=== PATIENT | male | born 1945 | race Two or more races ===

== ENCOUNTER 2019-11-30 07:19 | Inpatient (IN) | payer OTHER, MEDICAID ==
[~2019-11-30] VITALS: Ht 170.2 cm; Wt 100.9 kg
[2019-11-30] MEDS ORDERED: KETOROLAC TROMETH 60MG/2ML VIAL IM ONE (07:45)
[2019-11-30 08:57] LABS: Basophils # (auto) 0 10 ^3/uL (0-0.2); Basophils % (auto) 0.1 % (0.0-2.0); Eosinophils # (auto) 0 10 ^3/uL (0-0.8); Hematocrit 45.4 % (41.0-53.0); Hemoglobin 15.5 g/dL (13.5-17.5); Lymphocytes # (auto) 0.7 10 ^3/uL (0.4-5.4); Lymphocytes % (auto) 20.7 % (10.0-50.0); Mean Corpuscular Hemoglobin 32.6 pg (28.0-32.0); Mean Corpuscular Hgb Conc. 34.2 g/dL (32.0-36.0); Mean Corpuscular Volume 95.4 fL (80.0-100.0); Monocytes # (auto) 0.2 10 ^3/uL (0-1.3); Monocytes % (auto) 5.7 % (0.0-12.0); Neutrophils # (auto) 2.6 10 ^3/uL (1.6-8.6); Neutrophils % (auto) 73.5 % (37.0-80.0); Nucleated Red Blood Cells % 0.2 %; Platelet Count (auto) 110 10^3/uL (140-450); Red Blood Cells 4.75 10^6/uL (4.5-5.90); Red Cell Distribution Width 13.3 % (11.8-14.3); White Blood Cell 3.5 10^3/uL (4.4-10.8)
[2019-11-30 09:12] LABS: Alanine Aminotransferase 65 U/L (16-61); Albumin 3.4 g/dL (3.4-5.0); Anion Gap 9 (5-15); Aspartate Aminotransferase 78 U/L (15-37); BUN/Creatinine Ratio 9.8; Blood Urea Nitrogen 13 mg/dL (7-18); Calcium 8.1 mg/dL (8.5-10.1); Carbon Dioxide 23 mmol/L (21-32); Chloride 99 mmol/L (98-107); GFR African American 69 mL/min; GFR Non-African American 57 mL/min; Glucose 98 mg/dL (74-106); Potassium 3.5 mmol/L (3.5-5.1); Sodium 131 mmol/L (136-145)
[2019-11-30 09:17] LABS: Alkaline Phosphatase 53 U/L (45-117); Bilirubin, Total 0.8 mg/dL (0.2-1.0); Total Protein 7.8 g/dL (6.4-8.2)
[2019-11-30 10:05] LABS: Urine Bacteria NONE SEEN /hpf (None Seen); Urine Blood Negative /uL (Negative); Urine Hyaline Cast MANY /lpf (0 - 2); Urine Mucus FEW (None Seen); Urine Specific Gravity 1.043 (1.001-1.035); Urine WBC 7 /hpf (0 - 3)
[2019-11-30] MEDS ORDERED: DexAMETHasone SOD PHOS 10MG/1ML VIAL INJ IV ONE (10:15)
[2019-11-30] MEDS ORDERED: DOXYCYCLINE 100 MG TAB/CAP PO ONE (10:15)
[2019-11-30] MEDS ORDERED: ZINC SULFATE 220mg CAP or TAB PO ONE (10:15)
[2019-11-30 11:22] LABS: CRP High Sensitivity 10.9 mg/dL (< 0.3)
[2019-11-30] MEDS ORDERED: IOHEXOL 350 MG/ML 100ML IJ ONE (11:39)
[2019-11-30] MEDS ORDERED: SODIUM CHLORIDE 0.9% 1,000 ML IV SCH (16:07)
[2019-11-30] MEDS ORDERED: MORPHINE SULF INJ 2 MG/ML SYRINGE 1ML IV PRN (16:30)
[2019-11-30] MEDS ORDERED: DEXTROSE (50%) 50ML SYRG IV PRN (16:30)
[2019-11-30] MEDS ORDERED: NITROGLYCERIN 0.4 MG SL TAB SL PRN (16:30)
[2019-11-30] MEDS: ACCU-CHEK COMFORT CURVE STRIP VI SCH ×2 (18:22→23:45)
[2019-11-30] MEDS: InsuLIN REG 1unit/0.01ml Soln (100units/ml) SC SCH ×2 (18:30→23:50)
[2019-11-30] MEDS: ACETAMINOPHEN 500 MG TAB PO PRN (18:50)
[2019-11-30] MEDS: BUDESONIDE (INHALATION) 180 MCG IH IN SCH (19:58)
[2019-11-30] MEDS: ALBUTEROL SULF HFA 90MCG INH 200DOSE IN SCH (19:59)
[2019-11-30 20:42] VITALS: BP 130/68
[2019-11-30] MEDS ORDERED: TEMAZEPAM 15 MG CAP PO ONE (21:30)
[2019-11-30] MEDS: DOXYCYCLINE 100MG/250ML 250 ML IV SCH (22:07)
[2019-11-30] MEDS: ATORVASTATIN 20 MG TAB PO SCH (22:07)
[2019-12-01] MEDS: ACCU-CHEK COMFORT CURVE STRIP VI SCH ×3 (05:50→17:53)
[2019-12-01] MEDS: InsuLIN REG 1unit/0.01ml Soln (100units/ml) SC SCH ×3 (05:51→17:48)
[2019-12-01] MEDS: ALBUTEROL SULF HFA 90MCG INH 200DOSE IN SCH ×2 (06:00→23:40)
[2019-12-01 08:14] LABS: Basophils # (auto) 0 10 ^3/uL (0-0.2); Basophils % (auto) 0.1 % (0.0-2.0); Eosinophils # (auto) 0 10 ^3/uL (0-0.8); Hematocrit 41.1 % (41.0-53.0); Hemoglobin 14.1 g/dL (13.5-17.5); Lymphocytes # (auto) 0.6 10 ^3/uL (0.4-5.4); Lymphocytes % (auto) 14.6 % (10.0-50.0); Mean Corpuscular Hemoglobin 32.8 pg (28.0-32.0); Mean Corpuscular Hgb Conc. 34.4 g/dL (32.0-36.0); Mean Corpuscular Volume 95.3 fL (80.0-100.0); Monocytes # (auto) 0.2 10 ^3/uL (0-1.3); Monocytes % (auto) 4.4 % (0.0-12.0); Neutrophils # (auto) 3.5 10 ^3/uL (1.6-8.6); Neutrophils % (auto) 80.9 % (37.0-80.0); Nucleated Red Blood Cells % 0.1 %; Platelet Count (auto) 108 10^3/uL (140-450); Red Blood Cells 4.31 10^6/uL (4.5-5.90); White Blood Cell 4.3 10^3/uL (4.4-10.8)
[2019-12-01 08:28] LABS: Albumin 2.6 g/dL (3.4-5.0); Calcium 7.7 mg/dL (8.5-10.1)
[2019-12-01 08:30] LABS: Bilirubin, Total 0.6 mg/dL (0.2-1.0); Total Protein 6.7 g/dL (6.4-8.2)
[2019-12-01] MEDS: CHOLECALCIFEROL (VITD3) 2,000 UNIT CAP PO SCH (09:39)
[2019-12-01] MEDS: ASCORBIC ACID 1,000 MG TAB PO SCH (09:40)
[2019-12-01] MEDS: ZINC SULFATE 220mg CAP or TAB PO SCH (09:40)
[2019-12-01] MEDS: LISINOPRIL 5 MG TAB PO SCH (09:40)
[2019-12-01] MEDS: ENOXAPARIN SOD 40 MG/0.4 ML SYRINGE SC SCH (09:41)
[2019-12-01] MEDS: DexAMETHasone SOD PHOS 10MG/1ML VIAL INJ IV SCH (09:43)
[2019-12-01] MEDS: THIAMINE 100mg/ml INJ (200mg/2ml VIAL) IV SCH (09:43)
[2019-12-01] MEDS: DOXYCYCLINE 100MG/250ML 250 ML IV SCH ×2 (09:50→21:45)
[2019-12-01] MEDS: BUDESONIDE (INHALATION) 180 MCG IH IN SCH ×2 (10:00→23:40)
[2019-12-01] MEDS: ACETAMINOPHEN 500 MG TAB PO PRN ×2 (11:51→17:37)
[2019-12-01 21:28] VITALS: BP 128/78
--- NOTE | 2019-12-01 21:38 | NUR ---
Telemetry admit from ER Patient admitted to Telemetry unit. Patient oriented to primary RN, unit, room, bed, and unit policies regarding patient care and visiting hours. Patient now on continuous telemetry monitoring, tele box # 2 and telemetry reading on arrival to unit is sinus rhythm. Patient placed on bedside oxygen 4L NC, weighed by bedscale and encouraged to call if they need something. All questions and concerns addressed, patient verbalized understanding. Safety precautions in place bed is in lowest position and locked, bed rails 2x. Call light and bedside table are within reach.
[2019-12-01] MEDS: FAMOTIDINE 20 MG TAB PO SCH (21:45)
[2019-12-01] MEDS: ATORVASTATIN 20 MG TAB PO SCH (21:45)
[2019-12-02] MEDS: ACCU-CHEK COMFORT CURVE STRIP VI SCH ×4 (00:25→18:21)
[2019-12-02] MEDS: InsuLIN REG 1unit/0.01ml Soln (100units/ml) SC SCH ×4 (00:33→18:21)
[2019-12-02] MEDS: ACETAMINOPHEN 500 MG TAB PO PRN ×2 (01:48→23:52)
[2019-12-02 05:06] VITALS: BP 114/61
[2019-12-02] MEDS ORDERED: CHOL20007 OR (05:12)
[2019-12-02] MEDS ORDERED: HYDR25TA4 PO (05:12)
[2019-12-02] MEDS ORDERED: FLUT50SP (05:12)
[2019-12-02] MEDS ORDERED: LOSA-69 PO (05:12)
[2019-12-02] MEDS ORDERED: OMEP20TA PO (05:12)
[2019-12-02] MEDS ORDERED: FENO145T27 OR (05:12)
[2019-12-02] MEDS ORDERED: TRAZ100T3 PO (05:12)
[2019-12-02] MEDS ORDERED: GLIP5TAB12 PO (05:12)
[2019-12-02] MEDS ORDERED: SIMV10TA84 PO (05:12)
[2019-12-02] MEDS ORDERED: TRAM50TA2 PO (05:12)
[2019-12-02] MEDS ORDERED: GABA100C9 PO (05:12)
[2019-12-02] MEDS ORDERED: DOXA4TAB5 PO (05:12)
[2019-12-02] MEDS ORDERED: METO25TA93 PO (05:12)
[2019-12-02] MEDS ORDERED: METF-370 PO (05:12)
[2019-12-02] MEDS: ALBUTEROL SULF HFA 90MCG INH 200DOSE IN SCH ×3 (06:32→18:40)
[2019-12-02] MEDS: BUDESONIDE (INHALATION) 180 MCG IH IN SCH ×2 (06:39→18:40)
[2019-12-02 06:51] LABS: Basophils # (auto) 0 10 ^3/uL (0-0.2); Eosinophils # (auto) 0 10 ^3/uL (0-0.8); Hemoglobin 14.9 g/dL (13.5-17.5); Lymphocytes # (auto) 0.9 10 ^3/uL (0.4-5.4); Lymphocytes % (auto) 14.7 % (10.0-50.0); Mean Corpuscular Hemoglobin 32.9 pg (28.0-32.0); Mean Corpuscular Hgb Conc. 34.6 g/dL (32.0-36.0); Mean Corpuscular Volume 95.1 fL (80.0-100.0); Monocytes # (auto) 0.2 10 ^3/uL (0-1.3); Monocytes % (auto) 3.3 % (0.0-12.0); Neutrophils # (auto) 4.9 10 ^3/uL (1.6-8.6); Nucleated Red Blood Cells % 0.1 %; Platelet Count (auto) 119 10^3/uL (140-450); Red Blood Cells 4.52 10^6/uL (4.5-5.90)
[2019-12-02 07:05] LABS: Potassium 3.7 mmol/L (3.5-5.1)
[2019-12-02 07:17] LABS: Albumin 2.6 g/dL (3.4-5.0); BUN/Creatinine Ratio 19.4; Bilirubin, Total 0.5 mg/dL (0.2-1.0); CRP High Sensitivity 6.99 mg/dL (< 0.3); Calcium 8.1 mg/dL (8.5-10.1); Total Protein 6.9 g/dL (6.4-8.2)
--- NOTE | 2019-12-02 07:18 | NUR ---
End of Shift Note Endorsed care to dayshift RN. At this time patient has no s/s of distress or SOB.
--- NOTE | 2019-12-02 07:20 | NUR ---
Opening Shift Note Assumed care of patient, awake and alert x4. Patient is on 5 L via NC, O2 Sat is at 92%. Patient denies pain at this time. Instructed on plan of care and encouraged patient to call for assistance as needed. Bed is locked in lowest position, side rails x 2 are up, and call light is within reach.
[2019-12-02 08:00] VITALS: BP 135/67
[2019-12-02] MEDS: DOXYCYCLINE 100MG/250ML 250 ML IV SCH ×2 (10:14→22:46)
[2019-12-02] MEDS: THIAMINE 100mg/ml INJ (200mg/2ml VIAL) IV SCH (10:15)
[2019-12-02] MEDS: CHOLECALCIFEROL (VITD3) 2,000 UNIT CAP PO SCH (10:16)
[2019-12-02] MEDS: ASCORBIC ACID 1,000 MG TAB PO SCH ×2 (10:16→22:46)
[2019-12-02] MEDS: ZINC SULFATE 220mg CAP or TAB PO SCH (10:16)
[2019-12-02] MEDS: DexAMETHasone SOD PHOS 10MG/1ML VIAL INJ IV SCH (10:16)
[2019-12-02] MEDS: ENOXAPARIN SOD 40 MG/0.4 ML SYRINGE SC SCH (10:16)
[2019-12-02] MEDS: FAMOTIDINE 20 MG TAB PO SCH ×2 (10:17→22:45)
[2019-12-02] MEDS: LISINOPRIL 5 MG TAB PO SCH (10:17)
[2019-12-02 12:00] VITALS: BP 150/66
[2019-12-02 17:00] VITALS: BP 136/77
[2019-12-02] MEDS ORDERED: TEMAZEPAM 15 MG CAP PO PRN (18:15)
--- NOTE | 2019-12-02 18:30 | NUR ---
IV DISLODGED IV dislodged acidentally by patient. Catheter fully intact. Pressure dressing applied to site. Patient tolerated well.
[2019-12-02] MEDS ORDERED: REMDESIVIR 200 MG IV ONE (19:15)
--- NOTE | 2019-12-02 19:25 | NUR ---
Discharge instructions given as ordered. Encourage to follow up with PMD as instructed. All questions and concerns addressed. Patient verbalized understanding. IV removed with catheter intact, pressure dressing applied. Telemetry unit returned to ICU. Patient taken to vehicle via wheelchair with all personal belongings, accompanied by staff. Prescriptions electronically sent to pharmacy, pending pickup by patient. No distress noted at time of departure. Addendum: 12/02/19 at 1931 by CLINTON CUELLAR RN RN wrong patient please disregard.
--- NOTE | 2019-12-02 20:00 | NUR ---
IV insertion First IV access obtained, via clean sterile technique by inserting 20 gauge catheter at left antecubital after 1 attempt. IV secured properly. No trauma to site. Patient tolerated well. Second, IV access obtained, via clean sterile technique by inserting 20 gauge catheter at right forearm after 1 attempt. IV secured properly. No trauma to site. Patient tolerated well. Will continue to monitor patient Q1 and PRN.
[2019-12-02 22:03] VITALS: BP 130/78
[2019-12-02] MEDS: traZODone HCL 50 MG TAB PO SCH (22:45)
[2019-12-02] MEDS: ATORVASTATIN 20 MG TAB PO SCH (22:46)
[2019-12-02] MEDS: ARTIFICIAL TEARS 15ml EACHEYE PRN (22:47)
[2019-12-02] MEDS ORDERED: REMDESIVIR 200 MG in NS 210ml LOADING DOSE ADULT IV ONE (23:00)
[2019-12-02 23:50] VITALS: BP 127/55
--- NOTE | 2019-12-02 23:50 | NUR ---
Remdesivir Administration Premedicated VS: BP 127/55 NM 81 RR 20 SPO2 92% TEMP 98.1F. At this time patient has no s/s of distress or SOB.
[2019-12-03] VITALS (8 sets, daily range): BP systolic 114–138; BP diastolic 47–82
--- NOTE | 2019-12-03 00:08 | NUR ---
Remdesivir 15 minute Recheck Current VS: BP 114/47 CT 69 RR 20 TEMP 98F. Patient is asymptomatic, no s/s of distress or SOB. Will continue to monitor patient Q1 and PRN.
[2019-12-03] MEDS: InsuLIN REG 1unit/0.01ml Soln (100units/ml) SC SCH ×5 (00:48→23:42)
[2019-12-03] MEDS: ACCU-CHEK COMFORT CURVE STRIP VI SCH ×5 (05:25→23:40)
[2019-12-03] MEDS: ALBUTEROL SULF HFA 90MCG INH 200DOSE IN SCH ×3 (06:16→21:46)
[2019-12-03] MEDS: BUDESONIDE (INHALATION) 180 MCG IH IN SCH ×2 (06:16→21:46)
--- NOTE | 2019-12-03 06:16 | NUR ---
PT INFORMED TO RINSE MOUTH AFTER PULMICORT DPI. PT IS [place] SPEAKING. UNCERTAIN IF INSTRUCTIONS WERE UNDERSTOOD.
--- NOTE | 2019-12-03 06:16 | NUR ---
Respiratory note: MDI GIVEN BY RT, TOLERATED WELL. HR 84, RR 16, SPO2 88% ON 15L NRB, BS CLEAR AND DIMINISHED. NO SIGNS OR SYMPTOMS OF RESPIRATORY DISTRESS NOTED. WILL CONTINUE TO MONITOR ORDERED.
[2019-12-03 06:32] LABS: Basophils # (auto) 0 10 ^3/uL (0-0.2); Basophils % (auto) 0.1 % (0.0-2.0); Eosinophils # (auto) 0 10 ^3/uL (0-0.8); Hematocrit 42.2 % (41.0-53.0); Hemoglobin 14.7 g/dL (13.5-17.5); Lymphocytes # (auto) 0.7 10 ^3/uL (0.4-5.4); Lymphocytes % (auto) 11.9 % (10.0-50.0); Mean Corpuscular Hemoglobin 32.9 pg (28.0-32.0); Mean Corpuscular Hgb Conc. 34.8 g/dL (32.0-36.0); Mean Corpuscular Volume 94.5 fL (80.0-100.0); Monocytes # (auto) 0.3 10 ^3/uL (0-1.3); Monocytes % (auto) 4.8 % (0.0-12.0); Neutrophils # (auto) 4.8 10 ^3/uL (1.6-8.6); Neutrophils % (auto) 83.2 % (37.0-80.0); Platelet Count (auto) 148 10^3/uL (140-450); Red Blood Cells 4.46 10^6/uL (4.5-5.90); Red Cell Distribution Width 13.4 % (11.8-14.3); White Blood Cell 5.8 10^3/uL (4.4-10.8)
[2019-12-03 06:46] LABS: INR 1.04 (0.9-1.15); Partial Thromboplastin Time 31.4 sec (23.0-31.2)
[2019-12-03 06:53] LABS: Potassium 4.2 mmol/L (3.5-5.1)
[2019-12-03 07:10] LABS: Albumin 2.3 g/dL (3.4-5.0); Bilirubin, Total 0.5 mg/dL (0.2-1.0); CRP High Sensitivity 12.8 mg/dL (< 0.3); Calcium 8.1 mg/dL (8.5-10.1); Total Protein 6.9 g/dL (6.4-8.2)
--- NOTE | 2019-12-03 07:28 | NUR ---
End of Shift Note Endorsed care to dayshift RN. At this time patient has no s/s of distress or SOB.
--- NOTE | 2019-12-03 07:30 | NUR ---
Opening Shift Note Assumed care of patient, awake and alert x4. Patient is on 15 L via non rebreather, O2 Sat is at 92%. Patient denies pain at this time. Instructed on plan of care and encouraged patient to call for assistance as needed. Bed is locked in lowest position, side rails x 2 are up, and call light is within reach.
--- NOTE | 2019-12-03 09:00 | NUR ---
Respiratory note: SPOKE TO [employer] DEAN ABOUT PLACING PT ON MONITOR WITH CONTINUOUS POX.
[2019-12-03] MEDS: DOXYCYCLINE 100MG/250ML 250 ML IV SCH ×2 (09:16→21:30)
[2019-12-03] MEDS: FAMOTIDINE 20 MG TAB PO SCH ×2 (09:17→21:32)
[2019-12-03] MEDS: CHOLECALCIFEROL (VITD3) 2,000 UNIT CAP PO SCH (09:17)
[2019-12-03] MEDS: ENOXAPARIN SOD 40 MG/0.4 ML SYRINGE SC SCH (09:17)
[2019-12-03] MEDS: ASCORBIC ACID 1,000 MG TAB PO SCH ×2 (09:17→21:31)
[2019-12-03] MEDS: DexAMETHasone SOD PHOS 10MG/1ML VIAL INJ IV SCH (09:17)
[2019-12-03] MEDS: THIAMINE 100mg/ml INJ (200mg/2ml VIAL) IV SCH (09:18)
[2019-12-03] MEDS: LISINOPRIL 5 MG TAB PO SCH (09:18)
[2019-12-03] MEDS: ZINC SULFATE 220mg CAP or TAB PO SCH (09:18)
[2019-12-03] MEDS ORDERED: methylPREDNISolone SOD SUCC 40 MG/ML VL IV ONE (17:00)
[2019-12-03] MEDS ORDERED: ACETAMINOPHEN 650 mg PER 20 mL UD PO ONE (17:00)
[2019-12-03] MEDS ORDERED: diphenhdrAMINE HCL 50 MG/1 ML VL IV ONE (17:00)
[2019-12-03] MEDS ORDERED: TOCILIZUMAB 400 MG in SODIUM CHL 0.9% 80 ML IV ONE (17:30)
--- NOTE | 2019-12-03 17:50 | NUR ---
Spoke with patient daughter Password verified. Spoke with Starr patient's daughter. Starr updated on patient's condition. All questions and concerns addressed.
--- NOTE | 2019-12-03 19:10 | NUR ---
Opening Shift Note Assumed care of patient, awake, alert and orietnted x4, on 15L nonrebreather with even and unlabored respirations, no S/S of distress/SOB or pain. Patient able to turn in bed independently, bed in lowest locked position, side rails up x2, and call light within reach. Instructed on POC and to call for assist PRN, will continue to monitor for changes Q1hr and PRN.
[2019-12-03] MEDS: REMDESIVIR 100mg in NS 230ml DAILYx4DAYS (NO VENT) IV SCH (20:04)
--- NOTE | 2019-12-03 20:05 | NUR ---
REMDESIVIR ADMNISTRATION 1/ PRE ADMINISTRATION VITALS: BP 144/76, HR 82, O2 91%, RR 18
[2019-12-03] MEDS: ATORVASTATIN 20 MG TAB PO SCH (21:31)
[2019-12-03] MEDS: traZODone HCL 50 MG TAB PO SCH (21:31)
[2019-12-04 00:33] VITALS: BP 140/73
[2019-12-04] MEDS: ACETAMINOPHEN 500 MG TAB PO PRN (01:49)
[2019-12-04 05:16] VITALS: BP 128/70
[2019-12-04 06:28] LABS: Basophils # (auto) 0 10 ^3/uL (0-0.2); Basophils % (auto) 0.2 % (0.0-2.0); Eosinophils # (auto) 0 10 ^3/uL (0-0.8); Hematocrit 43.7 % (41.0-53.0); Hemoglobin 14.7 g/dL (13.5-17.5); Lymphocytes # (auto) 0.7 10 ^3/uL (0.4-5.4); Lymphocytes % (auto) 15.5 % (10.0-50.0); Mean Corpuscular Hemoglobin 32.1 pg (28.0-32.0); Mean Corpuscular Hgb Conc. 33.7 g/dL (32.0-36.0); Mean Corpuscular Volume 95.3 fL (80.0-100.0); Monocytes # (auto) 0.4 10 ^3/uL (0-1.3); Monocytes % (auto) 8.6 % (0.0-12.0); Neutrophils # (auto) 3.4 10 ^3/uL (1.6-8.6); Neutrophils % (auto) 75.7 % (37.0-80.0); Nucleated Red Blood Cells % 0.1 %; Platelet Count (auto) 174 10^3/uL (140-450); Red Blood Cells 4.59 10^6/uL (4.5-5.90); Red Cell Distribution Width 13.1 % (11.8-14.3); White Blood Cell 4.4 10^3/uL (4.4-10.8)
[2019-12-04 06:44] LABS: Potassium 4.6 mmol/L (3.5-5.1)
[2019-12-04] MEDS: InsuLIN REG 1unit/0.01ml Soln (100units/ml) SC SCH ×4 (06:54→23:45)
[2019-12-04] MEDS: ACCU-CHEK COMFORT CURVE STRIP VI SCH ×4 (06:54→23:38)
[2019-12-04 07:05] LABS: Albumin 2.4 g/dL (3.4-5.0); Bilirubin, Total 0.6 mg/dL (0.2-1.0); CRP High Sensitivity 9.71 mg/dL (< 0.3); Calcium 8.7 mg/dL (8.5-10.1); Total Protein 7.2 g/dL (6.4-8.2)
--- NOTE | 2019-12-04 07:35 | NUR ---
opening shift note Assumed care of patient from NOC RN. Patient is AOX4, no SOB or distress noted. Bed is in lowest locked position, call light is with in reach, and side rails are up x2. Updated patient on plan of care and patient verbalized understanding. Will continue to monitor q1hr and PRN.
[2019-12-04] MEDS ORDERED: ACETAMINOPHEN 650 mg PER 20 mL UD PO ONE (08:00)
[2019-12-04] MEDS ORDERED: diphenhdrAMINE HCL 50 MG/1 ML VL IV ONE (08:00)
[2019-12-04] MEDS ORDERED: methylPREDNISolone SOD SUCC 40 MG/ML VL IV ONE (08:00)
[2019-12-04] MEDS ORDERED: TOCILIZUMAB 400 MG in SODIUM CHL 0.9% 80 ML IV ONE (08:30)
[2019-12-04 08:45] VITALS: BP 108/53
[2019-12-04] MEDS: THIAMINE 100mg/ml INJ (200mg/2ml VIAL) IV SCH (09:27)
[2019-12-04] MEDS: DexAMETHasone SOD PHOS 10MG/1ML VIAL INJ IV SCH (09:29)
[2019-12-04] MEDS: FAMOTIDINE 20 MG TAB PO SCH ×2 (09:30→21:51)
[2019-12-04] MEDS: CHOLECALCIFEROL (VITD3) 2,000 UNIT CAP PO SCH (09:30)
[2019-12-04] MEDS: ASCORBIC ACID 1,000 MG TAB PO SCH ×2 (09:30→21:51)
[2019-12-04] MEDS: ZINC SULFATE 220mg CAP or TAB PO SCH (09:30)
[2019-12-04] MEDS: ENOXAPARIN SOD 40 MG/0.4 ML SYRINGE SC SCH (09:31)
[2019-12-04] MEDS: LISINOPRIL 5 MG TAB PO SCH (09:31)
[2019-12-04] MEDS: BUDESONIDE (INHALATION) 180 MCG IH IN SCH ×2 (10:09→21:58)
[2019-12-04] MEDS: ALBUTEROL SULF HFA 90MCG INH 200DOSE IN SCH ×3 (10:09→21:58)
[2019-12-04] MEDS: DOXYCYCLINE 100MG/250ML 250 ML IV SCH ×2 (11:24→21:50)
--- NOTE | 2019-12-04 11:52 | NUR ---
Est energy needs [phone] kcal (20-23 kcal/kg BW 88.3kg) Est protein needs 67-105g (1-1.5g/kg IBW 67.3kg) Will reassess prn. Addendum: 12/04/[address] Amended: Links added.
--- NOTE | 2019-12-04 12:17 | NUR ---
actemra Actemra was given at 1000, 30 min after pre-medications were given.
[2019-12-04 12:45] VITALS: BP 129/76
[2019-12-04 16:45] VITALS: BP 143/81
--- NOTE | 2019-12-04 19:05 | NUR ---
end of shift note endorsed care to NOC MENDEL Shelley, no s/s of distress noted.
--- NOTE | 2019-12-04 19:14 | NUR ---
Opening Shift Note Assumed care of patient, awake, alert and oriented x4, on 15L of oxygen via nonrebreather with even and unlabored respirations, no S/S of distress/SOB or pain. Patient able to turn in bed independently, bed in lowest locked position, side rails up x2, and call light within reach. Instructed on POC and to call for assist PRN, will continue to monitor for changes Q1hr and PRN.
[2019-12-04] MEDS: REMDESIVIR 100mg in NS 230ml DAILYx4DAYS (NO VENT) IV SCH (20:22)
[2019-12-04] MEDS: traZODone HCL 50 MG TAB PO SCH (21:50)
[2019-12-04] MEDS: ATORVASTATIN 20 MG TAB PO SCH (21:51)
--- NOTE | 2019-12-04 21:59 | NUR ---
RT NOTE PT WAS SEEN BY RT FOR MDI TX. PT TOLERATES ALBUTEROL WELL VIA SPACER. PT RINSED MOUTH POST PULMICORT INHALER. PT SATS ARE 86% ON 15 NRB WHILE SUPINE. PT WAS PRONED AFTER TX AND SATS INCREASED TO 96% CONT ORDERED Addendum: 12/04/19 at 2201 by Anne Luke RT Amended: Links added.
[2019-12-04] MEDS: ARTIFICIAL TEARS 15ml EACHEYE PRN (22:17)
[2019-12-04 22:40] VITALS: BP 137/76
[2019-12-05] MEDS: ACETAMINOPHEN 500 MG TAB PO PRN ×2 (01:16→11:40)
[2019-12-05 05:24] VITALS: BP 129/65
[2019-12-05] MEDS: InsuLIN REG 1unit/0.01ml Soln (100units/ml) SC SCH ×3 (06:00→17:39)
[2019-12-05 06:17] LABS: Albumin 2.4 g/dL (3.4-5.0); Calcium 8.1 mg/dL (8.5-10.1); Potassium 4.3 mmol/L (3.5-5.1)
[2019-12-05 06:21] LABS: BUN/Creatinine Ratio 23.8; Bilirubin, Total 0.8 mg/dL (0.2-1.0); Total Protein 6.9 g/dL (6.4-8.2)
[2019-12-05] MEDS: ACCU-CHEK COMFORT CURVE STRIP VI SCH ×3 (06:44→17:05)
[2019-12-05] MEDS: BUDESONIDE (INHALATION) 180 MCG IH IN SCH ×2 (06:54→22:04)
[2019-12-05] MEDS: ALBUTEROL SULF HFA 90MCG INH 200DOSE IN SCH ×3 (06:54→22:04)
--- NOTE | 2019-12-05 07:35 | NUR ---
opening shift note Assumed care of patient from NOC RN Karsten. Patient is AOX4, no SOB or distress noted. Bed is in lowest locked position, call light is with in reach, and side rails are up x2. Updated patient on plan of care and patient verbalized understanding. Will continue to monitor q1hr and PRN.
[2019-12-05 08:00] VITALS: BP 129/66
[2019-12-05] MEDS: THIAMINE 100mg/ml INJ (200mg/2ml VIAL) IV SCH (09:40)
[2019-12-05] MEDS: DexAMETHasone SOD PHOS 10MG/1ML VIAL INJ IV SCH (09:41)
[2019-12-05] MEDS: DOXYCYCLINE 100MG/250ML 250 ML IV SCH (09:42)
[2019-12-05] MEDS: ZINC SULFATE 220mg CAP or TAB PO SCH (09:42)
[2019-12-05] MEDS: ASCORBIC ACID 1,000 MG TAB PO SCH ×2 (09:43→21:34)
[2019-12-05] MEDS: CHOLECALCIFEROL (VITD3) 2,000 UNIT CAP PO SCH (09:43)
[2019-12-05] MEDS: FAMOTIDINE 20 MG TAB PO SCH ×2 (09:43→21:33)
[2019-12-05] MEDS: ENOXAPARIN SOD 40 MG/0.4 ML SYRINGE SC SCH ×2 (09:44→21:34)
[2019-12-05] MEDS: LISINOPRIL 5 MG TAB PO SCH (09:45)
--- NOTE | 2019-12-05 11:39 | NUR ---
jerilyn POND Called , left message, awaiting call back.
--- NOTE | 2019-12-05 11:45 | NUR ---
IV removal Patient removed IV, stating "I was laying down and when I moved I did not realize it came out. Catheter was fully intact. Pressure dressing applied to site.No signs and symptoms of distress noted.
--- NOTE | 2019-12-05 11:50 | NUR ---
Physician rounding Dr. Nuno at nurses station, updated him on patient status, new orders received. Will follow through will continue care.
[2019-12-05 12:00] VITALS: BP 100/76
[2019-12-05] MEDS ORDERED: traZODone HCL 50 MG TAB PO PRN (12:00)
--- NOTE | 2019-12-05 12:44 | NUR ---
IV insertion IV access obtained, via clean sterile technique by inserting 20 gauge catheter at LAC after 2 attempts. IV secured properly. No trauma to site. Patient tolerated well.
[2019-12-05 17:00] VITALS: BP 107/56
--- NOTE | 2019-12-05 19:10 | NUR ---
end of shift note endorsed care to NOC MENDEL Shelley. No s/s of distress noted.
[2019-12-05] MEDS: HYDROcodone-ACET 5/325MG TAB PO PRN (20:51)
[2019-12-05 21:25] VITALS: BP 112/56
[2019-12-05] MEDS: REMDESIVIR 100mg in NS 230ml DAILYx4DAYS (NO VENT) IV SCH (21:32)
[2019-12-05] MEDS: ATORVASTATIN 20 MG TAB PO SCH (21:33)
[2019-12-05] MEDS: traZODone HCL 50 MG TAB PO SCH (21:33)
[2019-12-05] MEDS: ARTIFICIAL TEARS 15ml EACHEYE PRN (21:51)
[2019-12-06] VITALS (12 sets, daily range): BP systolic 98–142; BP diastolic 54–75
[2019-12-06] MEDS: HYDROcodone-ACET 5/325MG TAB PO PRN ×4 (04:45→20:30)
[2019-12-06] MEDS: InsuLIN REG 1unit/0.01ml Soln (100units/ml) SC SCH ×4 (06:00→16:50)
[2019-12-06] MEDS: ACCU-CHEK COMFORT CURVE STRIP VI SCH ×4 (06:10→16:48)
[2019-12-06] MEDS: ALBUTEROL SULF HFA 90MCG INH 200DOSE IN SCH ×3 (06:47→22:10)
--- NOTE | 2019-12-06 06:47 | NUR ---
Respiratory note: PT REFUSE MDI AT THIS TIME, NO DISTRESS NOTED, PULSE OX 91% ON 15L NRB, HR 84, RR 18
--- NOTE | 2019-12-06 07:00 | NUR ---
Opening Shift Note Assumed care of patient, awake and alert. No S/S of distress/SOB or pain. Instructed on POC and to call for assist PRN, will continue to monitor for changes Q1hr and PRN.
[2019-12-06] MEDS: CHOLECALCIFEROL (VITD3) 2,000 UNIT CAP PO SCH (10:00)
[2019-12-06] MEDS: FAMOTIDINE 20 MG TAB PO SCH ×2 (10:18→21:21)
[2019-12-06] MEDS: ZINC SULFATE 220mg CAP or TAB PO SCH (10:18)
[2019-12-06] MEDS: THIAMINE 100mg/ml INJ (200mg/2ml VIAL) IV SCH (10:18)
[2019-12-06] MEDS: DexAMETHasone SOD PHOS 10MG/1ML VIAL INJ IV SCH (10:18)
[2019-12-06] MEDS: ASCORBIC ACID 1,000 MG TAB PO SCH ×2 (10:19→21:21)
[2019-12-06] MEDS: SENNA 8.6 MG TAB PO SCH (10:19)
[2019-12-06] MEDS: LISINOPRIL 5 MG TAB PO SCH (10:20)
[2019-12-06] MEDS: ENOXAPARIN SOD 40 MG/0.4 ML SYRINGE SC SCH (10:20)
[2019-12-06] MEDS: BUDESONIDE (INHALATION) 180 MCG IH IN SCH ×2 (10:55→22:10)
--- NOTE | 2019-12-06 11:38 | NUR ---
assessment Patient is a 74 year old male who is in the Covid unit. Patient is Covid positive. Per patients daughter Starr prior to admission patient lived home with his and was independent. Per Starr patient will return home on discharge with his . Patient had no need for DME or oxygen prior to admission. I informed Starr patients post discharge needs to be determined once patient is medically stable. I will continue to monitor and follow up as appropriate. Starr verbalized understanding. Addendum: 12/06/19 at 1146 by Mary Lou PEREZ Amended: Links added.
--- NOTE | 2019-12-06 12:00 | NUR ---
REFUSED INSULIN PATIENT REFUSED INSULIN BECAUSE HE IS NOT EATING. EDUCATED PATIENT ON THE NEED FOR INSULIN. PATIENT VERBALIZED UNDERSTANDING CONTINUES TO REFUSE INSULIN.
[2019-12-06 14:54] LABS: Albumin 2.6 g/dL (3.4-5.0); BUN/Creatinine Ratio 21.8; Calcium 8.6 mg/dL (8.5-10.1); Potassium 4.6 mmol/L (3.5-5.1)
[2019-12-06] MEDS: ARTIFICIAL TEARS 15ml EACHEYE PRN (16:15)
[2019-12-06] MEDS ORDERED: DOCUSATE SOD 100 MG CAP PO PRN (17:00)
--- NOTE | 2019-12-06 17:45 | NUR ---
GAVE REPORT TO MENDEL HDEZ IN [facility].
[2019-12-06] MEDS: SALINE 0.65 % NASAL SPRAY 45ML BOTTLE EACHNOSTRI SCH ×2 (18:00→21:21)
--- NOTE | 2019-12-06 18:00 | NUR ---
NOTIFIED LOI OF TRANSFER TO [facility] ROOM 266
--- NOTE | 2019-12-06 18:25 | NUR ---
PAGED TO PT ROOM, FOUND PT ON 15L NRB SATS IN THE 50'S. RN AT BEDSIDE, PLACED PT ON HIGH FLOW NC 60LPM @.100, WITH MINIMAL IMPROVEMENT, SATS TO 70% PT STILL HAVING INCREASED WOB AND SOB. PT REFUSED TO PRONE OR LAY ON HIS SIDE AT THIS TIME. PT SWITCHED TO BIPAP (B8) WITH MEDIUM FULL FACE MASK. STARTED AT 12/8 @100 WITH SOME IMPROVEMENT. INCREASED SETTINGS TO 14/10 @100. SATS NOW 88-91% WITH DECREASED WOB. RN AT BEDSIDE AND AWARE.
--- NOTE | 2019-12-06 18:39 | NUR ---
TRANSFER Received report from Katie Cotto RN. Patient upgraded to [facility] for high flow per Dr Hung. Patient received from [facility] via wheelchair on NRB 15L oxygen. Patient connected to bedside monitor and wall oxygen at 15L via NRB. Vitals as follows: HR 93 BP 116/60 RR 42 O2 sats 56% on 15L NRB temp 97.4F. RT immediately paged to connect patient to high flow per Dr Hung orders. RT arrived and attempted to place patient on High Flow 60L 100%. Patient couldn't tolerate it with O2 sats in the mid 70s and complaints of pressure to his eyes. Patient then placed on Bipap with settings 14/10 100%. O2 sats to 89-90% with RR 31. Patient provided call light. Bed in lowest position, rails x2 up and call light within reach. Report to be given to CEDRIC OGLESBY.
[2019-12-06] MEDS: REMDESIVIR 100mg in NS 230ml DAILYx4DAYS (NO VENT) IV SCH (20:00)
--- NOTE | 2019-12-06 20:00 | NUR ---
SHIFT OPENING NOTE RECEIVED PATIENT AWAKE, ALERT AND ORIENTED X4 [place] SPEAKING. ON BIPAP 14/02 ,100% FI02 POX 90-93%. SOB NOTED. SLIGHT HEADACHE NOTED DUE TO BIPAP. WILL GIVE NORCO WHEN DUE. USES URINAL INDEPENDENTLY. IV TO LEFT AC 20G SL. PHYSICAL ASSESSMENT COMPLETED, SEE INTERVENTIONS. INSTRUCTED ON POC AND TO CALL FOR ASSIST NEEDED. BED IS IN THE LOWEST POSITION WITH SIDE RAILS UP X2, CALL LIGHT IS WITHIN REACH.
[2019-12-06] MEDS: ATORVASTATIN 20 MG TAB PO SCH (21:21)
[2019-12-06] MEDS: traZODone HCL 50 MG TAB PO SCH (21:21)
[2019-12-06] MEDS: ENOXAPARIN SOD 100 MG/1 ML SYRINGE SC SCH (21:22)
[2019-12-07] VITALS (13 sets, daily range): BP systolic 108–142; BP diastolic 56–78
[2019-12-07] MEDS: ACCU-CHEK COMFORT CURVE STRIP VI SCH ×5 (00:33→23:50)
[2019-12-07] MEDS: InsuLIN REG 1unit/0.01ml Soln (100units/ml) SC SCH ×5 (00:34→23:50)
--- NOTE | 2019-12-07 00:35 | NUR ---
ROUNDS PATIENT IS QUIETLY LAYING IN BED SLEEPING. REMAINS ON BIPAP TOLERATING IT WELL. VS STABLE. WILL CONTINUE TO CLOSELY MONITOR.
[2019-12-07 04:13] LABS: Basophils # (auto) 0 10 ^3/uL (0-0.2); Basophils % (auto) 0.3 % (0.0-2.0); Eosinophils # (auto) 0.1 10 ^3/uL (0-0.8); Hematocrit 45.7 % (41.0-53.0); Hemoglobin 15.5 g/dL (13.5-17.5); Lymphocytes # (auto) 0.6 10 ^3/uL (0.4-5.4); Lymphocytes % (auto) 8.8 % (10.0-50.0); Mean Corpuscular Hemoglobin 32.3 pg (28.0-32.0); Mean Corpuscular Hgb Conc. 33.9 g/dL (32.0-36.0); Mean Corpuscular Volume 95.3 fL (80.0-100.0); Monocytes # (auto) 0.2 10 ^3/uL (0-1.3); Monocytes % (auto) 2.4 % (0.0-12.0); Neutrophils # (auto) 6.1 10 ^3/uL (1.6-8.6); Neutrophils % (auto) 87.5 % (37.0-80.0); Nucleated Red Blood Cells % 0.1 %; Platelet Count (auto) 193 10^3/uL (140-450); Red Cell Distribution Width 13.7 % (11.8-14.3)
[2019-12-07 04:35] LABS: Albumin 2.5 g/dL (3.4-5.0); Potassium 4.3 mmol/L (3.5-5.1)
[2019-12-07 04:44] LABS: BUN/Creatinine Ratio 27.2; Bilirubin, Total 0.8 mg/dL (0.2-1.0); CRP High Sensitivity 1.14 mg/dL (< 0.3); Total Protein 6.3 g/dL (6.4-8.2)
[2019-12-07] MEDS: SALINE 0.65 % NASAL SPRAY 45ML BOTTLE EACHNOSTRI SCH ×4 (05:11→21:09)
[2019-12-07] MEDS: BUDESONIDE (INHALATION) 180 MCG IH IN SCH ×2 (06:37→21:09)
[2019-12-07] MEDS: ALBUTEROL SULF HFA 90MCG INH 200DOSE IN SCH ×3 (06:37→21:10)
[2019-12-07] MEDS: DexAMETHasone SOD PHOS 10MG/1ML VIAL INJ IV SCH (09:17)
[2019-12-07] MEDS: THIAMINE 100mg/ml INJ (200mg/2ml VIAL) IV SCH (09:18)
[2019-12-07] MEDS: FAMOTIDINE 20 MG TAB PO SCH ×2 (09:19→21:10)
[2019-12-07] MEDS: CHOLECALCIFEROL (VITD3) 2,000 UNIT CAP PO SCH (09:19)
[2019-12-07] MEDS: ZINC SULFATE 220mg CAP or TAB PO SCH (09:19)
[2019-12-07] MEDS: ASCORBIC ACID 1,000 MG TAB PO SCH ×2 (09:19→21:11)
[2019-12-07] MEDS: LISINOPRIL 5 MG TAB PO SCH (09:20)
[2019-12-07] MEDS: SENNA 8.6 MG TAB PO SCH (09:20)
[2019-12-07] MEDS: ENOXAPARIN SOD 100 MG/1 ML SYRINGE SC SCH ×2 (09:21→21:10)
[2019-12-07] MEDS: HYDROcodone-ACET 5/325MG TAB PO PRN ×2 (10:46→17:22)
--- NOTE | 2019-12-07 11:48 | NUR ---
Nutrition Followup Note Wt 89.9 kg Pt`s in isolation as COVID +ve. pt is currently on CCHO 60 gm with adequate Po of 75% x 4 per RN doc. pt with no distress noted. Est energy needs 9379-1054 kcal (20-23 kcal/kg BW 88.3kg) Est protein needs 67-105g (1-1.5g/kg IBW 67.3kg) Will reassess prn. Labs: BUN 25 H, GLU 137 H ALB 2.5 L CA 8.0 L BM: pt has no BM reported per RN note Skin: BS 19 low risk, full details in property caretaker note. PES: Obesity aeb pt with a BMI of 30.5kg/m2 r/t caloric intake in excess of needs Comments: Will continue to monitor PO status, skin status, pertinent labs and weight trends.F/u mod 3-5 days Rec: 1) Refer pt to OPD on DC 2) Continue current plan of care
--- NOTE | 2019-12-07 13:55 | NUR ---
Respiratory note: TITRATED FIO2 TO 95%, MENDEL PALMER.
[2019-12-07] MEDS: FUROSEMIDE 40 MG/4 ML VIAL IV SCH (18:28)
--- NOTE | 2019-12-07 18:41 | NUR ---
MD AT BEDSIDE SPOKE TO SPANISHER, COMMUNICATION ORDER TO CONSULT IR POSSIBLY IN THE MORNING DEPENDING ON XRAY AND ALSO CONSULT DIETARY FOR POSSIBLE PARENTAL NUTRITION.
--- NOTE | 2019-12-07 18:52 | NUR ---
SPOKE WITH PHARMACIST NEED TO CLARIFY MAGNESIUM AND POTASSIUM LEVELS FOR COVERAGE, NO PROTOCOL UNLESS ON TPN, PER PHARMACIST.
--- NOTE | 2019-12-07 19:38 | NUR ---
CARE ENDORSED PT IN SIDE POSITION LAYING FLAT TO HELP WITH BREATHING. POX 95% WITH RR 26. CARE ENDORSED TO NOC RN.
--- NOTE | 2019-12-07 20:00 | NUR ---
OPENING NOTE REPORT RECEIVED FROM STACY RN. THIS IS A POSITIVE COVID PATIENT ON NOVEL RESPIRATORY ISOLATION. PATIENT IS A/OX4 CITIZEN OF [place] SPEAKING AND CONNECTED TO CONTINUOUS BEDSIDE MONITORS. PATIENT IS ON BIPAP 14/10 FIO2 95%, SPO2 98%. PHYSICAL ASSESSMENT DONE-SEE INTERVENTIONS. LEFT AC 20G PATENT AND SALINE LOCKED. PER PATIENT, LAST BM WAS TODAY 12/07/19. PATIENT ABLE TO REPOSITION SELF IN BED. POC DISCUSSED, ALL QUESTIONS ANSWERED. CALL LIGHT WITHIN REACH.
[2019-12-07] MEDS: ATORVASTATIN 20 MG TAB PO SCH (21:10)
[2019-12-07] MEDS: traZODone HCL 50 MG TAB PO SCH (21:10)
[2019-12-08] VITALS (11 sets, daily range): BP systolic 110–126; BP diastolic 58–77
[2019-12-08 04:07] LABS: Albumin 2.6 g/dL (3.4-5.0); Calcium 8.2 mg/dL (8.5-10.1); Magnesium 2.9 mg/dL (1.6-2.6); Potassium 4.3 mmol/L (3.5-5.1)
[2019-12-08 04:15] LABS: Bilirubin, Total 1.1 mg/dL (0.2-1.0); CRP High Sensitivity 1.04 mg/dL (< 0.3); Total Protein 6.6 g/dL (6.4-8.2)
[2019-12-08 04:29] LABS: INR 1.25 (0.9-1.15)
[2019-12-08] MEDS: SALINE 0.65 % NASAL SPRAY 45ML BOTTLE EACHNOSTRI SCH ×4 (06:00→22:00)
--- NOTE | 2019-12-08 06:00 | NUR ---
AM CARE PATIENT GIVEN COMPLETE BED BATH AND LINEN CHANGE USING WARM SOAPY WASH CLOTHS AND CHG WIPES. PATIENT ABLE TO HELP WITH TURNING. NEW GOWN PROVIDED TO PATIENT. PATIENT TOLERATED WELL.
[2019-12-08] MEDS: ACCU-CHEK COMFORT CURVE STRIP VI SCH ×4 (06:19→22:57)
[2019-12-08] MEDS: FUROSEMIDE 40 MG/4 ML VIAL IV SCH ×2 (06:19→17:45)
[2019-12-08] MEDS: InsuLIN REG 1unit/0.01ml Soln (100units/ml) SC SCH ×4 (06:26→22:57)
--- NOTE | 2019-12-08 07:22 | NUR ---
CLOSING PATIENT IS SLEEPING, CONNECTED TO CONTINUOUS BEDSIDE MONITORS, AND STILL ON BIPAP 14/10, FIO2 95%. NO S/S OF DISTRESS. SPO2 AT 95% AT THIS TIME. CALL LIGHT WITHIN REACH. CARE ENDORSED TO MENDEL BOOTH.
--- NOTE | 2019-12-08 07:25 | NUR ---
REPORT REPORT RECEIVED FROM JAIDA OGLESBY, CARE ASSUMED. PT OBSERVED RESTING IN BED ON BIPAP, NO DISTRESS NOTED AT THIS TIME. WILL CONTINUE TO MONITOR.
--- NOTE | 2019-12-08 08:00 | NUR ---
INITIAL CONTACT PHYSICAL ASSESSMENT COMPLETE. PT RESTING IN BED. PT ENCOURAGED TO REPOSITION SELF. PT IS ALERT AND ORIENTED. ABLE TO FOLLOW SIMPLE COMMANDS. PT ABLE TO MOVE ALL EXTREMITIES EQUALLY. DENIES PAIN AT THIS TIME. PULSES PALPABLE BILATERALLY. LUNGS DIMINISHED. PT ON BIPAP MASK 100% FIO2. OXYGEN SATURATION 95-98%. DENIES SHORTNESS OF BREATH AT THIS TIME. PT USES URINAL FOR ELIMINATION. SKIN INTACT. BED NATALIE DIN LOWEST POSITION, ALARMS IN PLACE. CALL LIGHT AND PERSONAL BELONGINGS WITHIN REACH. PT INSTRUCTED TO CALL FOR ASSISTANCE. PT VERBALIZED UNDERSTANDING.
[2019-12-08] MEDS: THIAMINE 100mg/ml INJ (200mg/2ml VIAL) IV SCH (09:09)
[2019-12-08] MEDS: CHOLECALCIFEROL (VITD3) 2,000 UNIT CAP PO SCH (09:09)
[2019-12-08] MEDS: DexAMETHasone SOD PHOS 10MG/1ML VIAL INJ IV SCH (09:09)
[2019-12-08] MEDS: ZINC SULFATE 220mg CAP or TAB PO SCH (09:09)
[2019-12-08] MEDS: ASCORBIC ACID 1,000 MG TAB PO SCH ×2 (09:09→22:00)
[2019-12-08] MEDS: FAMOTIDINE 20 MG TAB PO SCH ×2 (09:09→22:00)
[2019-12-08] MEDS: LISINOPRIL 5 MG TAB PO SCH (09:10)
[2019-12-08] MEDS: ENOXAPARIN SOD 100 MG/1 ML SYRINGE SC SCH ×2 (09:10→22:00)
[2019-12-08] MEDS: SENNA 8.6 MG TAB PO SCH (09:10)
[2019-12-08] MEDS: BUDESONIDE (INHALATION) 180 MCG IH IN SCH ×2 (09:39→21:42)
[2019-12-08] MEDS: ALBUTEROL SULF HFA 90MCG INH 200DOSE IN SCH ×3 (09:39→21:41)
--- NOTE | 2019-12-08 10:20 | NUR ---
MEDICATIONS BIPAP MASK REMOVED FOR SHORT PERIODS TO ALLOW PATIENT TO SWALLOW MEDICATIONS. SWALLOWING WITHOUT DIFFICULTY. PT C/O ABDOMINAL DISCOMFORT WITH BLOATING. ABDOMEN DOES APPEAR TO BE MILDLY DISTENDED, BUT SOFT. WILL CONTINUE TO MONITOR.
--- NOTE | 2019-12-08 10:50 | NUR ---
PAGED PAGED REGARDING ORDER FOR TPN. AWAITING CALL BACK.
--- NOTE | 2019-12-08 11:24 | NUR ---
RETURNED PAGE WANTING TO ORDER TPN AND PICC PLACEMENT DUE TO PT REQUIRING BIPAP 24HR/DAY. ORDERS PLACED.
[2019-12-08] MEDS ORDERED: TPN PER PHARMACY 0 ML IV SCH (11:30)
[2019-12-08 12:21] LABS: Pre Albumin 24.1 mg/dL (20.0-40.0)
--- NOTE | 2019-12-08 15:30 | NUR ---
PICC PICC LINE NURSE AT BEDSIDE. TRANSLATED IN [place], PATIENT CONSENT FOR PROCEDURE.
--- NOTE | 2019-12-08 15:49 | NUR ---
Consult Pt consult for constipation and S/S of dehydration. Continue with medication per MD approval for constipation. Will request kitchen to provide pt with prune juice.
--- NOTE | 2019-12-08 15:57 | NUR ---
FAMILY PATIENT DAUGHTER CALLED FOR UPDATE.
--- NOTE | 2019-12-08 16:25 | NUR ---
DESATURATION PATIENT OXYGEN DECREASED WHEN PATIENT OFF BIPAP MASK. PATIENT C/O FEELING LIKE HE WAS "CHOKING ON HIS FLEGM" PICC RN AT BEDSIDE REMOVED BIPAP MASK SO PT CAN EXPECTORATE SPUTUM. ONCE REMOVED PT OXYGEN SATURATION DECREASED TO 48%. PATIENT PLACED BACK ON BIPAP MASK IMMEDIATELY. OXYGEN SATURATION RETURNED TO BASELINE WITHIN 5 MINUTES. OXYGEN SATURATION 955. WILL CONTINUE TO MONITOR.
--- NOTE | 2019-12-08 16:28 | NUR ---
MD VISIT ROUNDING ON PATIENT. MD WOULD LIKE DAILY CXR PERFORMED ON PATIENT WHILE ON BIPAP.
--- NOTE | 2019-12-08 16:40 | NUR ---
PICC line placement Patient/Patient significant other educated on need for PICC line placement. All risks and benefits explained and all questions and concerns addressed prior to procedure. Noted past medical history and allergies with no contraindications. INR and Plt counts within acceptable range. 5 fr PICC line inserted via RIGHT CEPHALIC vein using [employer] US and Tip Location System. Sterile technique with maximum barrier precautions utilized. Blood return obtained from each of 3 lumens and each flushed easily with NS using proper technique. PICC secured with Stat-lock; biodisc and occlusive dressing applied. Stat portable chest x-ray obtained for PICC tip placement. *Baseline Arm Circumference 30CM *INTERNAL 43CM. *EXTERNAL 2 CM *PICC lot # [id number]. Note:
--- NOTE | 2019-12-08 17:45 | NUR ---
REPOSITION PT INSTRUCTED TO ATTEMPT TO LAY ON SIDE IF TOLERATED. OXYGEN SATURATION MAINTAINING 88-92%. RESPIRATORY RATE ELEVATED 35-40.
[2019-12-08] MEDS ORDERED: DEXTROSE (50%) 50ML SYRG IV SCH (18:00)
--- NOTE | 2019-12-08 18:07 | NUR ---
OK to use PICC line Xray completed. OK to use PICC line by .
[2019-12-08] MEDS ORDERED: LIDOCAINE 1% (LOCAL ANESTH.) PF 5ml SDV ID ONE (18:15)
[2019-12-08] MEDS ORDERED: TPN PER PHARMACY IV NR ×7 (20:00)
[2019-12-08] MEDS: traZODone HCL 50 MG TAB PO SCH (22:00)
[2019-12-08] MEDS: ATORVASTATIN 20 MG TAB PO SCH (22:00)
[2019-12-08] MEDS: SODIUM CHLOR 0.9% PF (SALINE LOCK) 10ML VIAL/SYR IV SCH (22:00)
[2019-12-09] VITALS (42 sets, daily range): BP systolic 62–185; BP diastolic 40–103
[2019-12-09 05:26] LABS: Potassium 3.6 mmol/L (3.5-5.1)
[2019-12-09 05:33] LABS: Albumin 2.7 g/dL (3.4-5.0); BUN/Creatinine Ratio 38.6; Bilirubin, Total 1.3 mg/dL (0.2-1.0); Calcium 8.2 mg/dL (8.5-10.1); Magnesium 3.3 mg/dL (1.6-2.6); Phosphorus 3.8 mg/dL (2.5-4.90); Total Protein 7.1 g/dL (6.4-8.2)
[2019-12-09] MEDS: BUDESONIDE (INHALATION) 180 MCG IH IN SCH ×2 (05:56→22:00)
[2019-12-09] MEDS: ALBUTEROL SULF HFA 90MCG INH 200DOSE IN SCH ×2 (05:56→14:00)
[2019-12-09] MEDS: ACCU-CHEK COMFORT CURVE STRIP VI SCH ×3 (06:00→20:30)
[2019-12-09] MEDS: InsuLIN REG 1unit/0.01ml Soln (100units/ml) SC SCH ×3 (06:00→18:00)
[2019-12-09] MEDS: FUROSEMIDE 40 MG/4 ML VIAL IV SCH (06:00)
[2019-12-09] MEDS: SALINE 0.65 % NASAL SPRAY 45ML BOTTLE EACHNOSTRI SCH ×4 (06:00→22:00)
--- NOTE | 2019-12-09 08:09 | NUR ---
PT PLACED ON CPAP MODE 12 CMH20 ON TOTAL FULL FACE MASK DUE TO PT UNABLE TO ALONDRA. BIPAP SETTINGS OF 14/10 BUR 12 ON 100% ABG OBTAINED. RN ROSAURA MADE AWARE. WILL CONTINUE TO MONITOR PT.
[2019-12-09] MEDS: FAMOTIDINE 20 MG TAB PO SCH ×2 (10:00→22:00)
[2019-12-09] MEDS: ZINC SULFATE 220mg CAP or TAB PO SCH (10:00)
[2019-12-09] MEDS: CHOLECALCIFEROL (VITD3) 2,000 UNIT CAP PO SCH (10:00)
[2019-12-09] MEDS: SODIUM CHLOR 0.9% PF (SALINE LOCK) 10ML VIAL/SYR IV SCH ×2 (10:00→22:04)
[2019-12-09] MEDS: LISINOPRIL 5 MG TAB PO SCH (10:00)
[2019-12-09] MEDS: SENNA 8.6 MG TAB PO SCH (10:00)
[2019-12-09] MEDS: ENOXAPARIN SOD 100 MG/1 ML SYRINGE SC SCH ×2 (10:00→22:07)
[2019-12-09] MEDS: ASCORBIC ACID 1,000 MG TAB PO SCH ×2 (10:00→22:00)
[2019-12-09] MEDS: DexAMETHasone SOD PHOS 10MG/1ML VIAL INJ IV SCH (10:00)
[2019-12-09] MEDS: THIAMINE 100mg/ml INJ (200mg/2ml VIAL) IV SCH ×2 (10:00→22:08)
--- NOTE | 2019-12-09 10:00 | NUR ---
MEDICATIONS 1000 oral medications held due to respiratory status and patient requiring CPAP. O2 sats while on CPAP mids 80s.
--- NOTE | 2019-12-09 11:32 | NUR ---
RESPIRATORY RT called due to patient's sats in the 70s. RT at bedside.
--- NOTE | 2019-12-09 11:37 | NUR ---
MD Dr Hung made aware of recent ABG and previously changing from BiPAP to CPAP. Patient now back on previous BiPAP settings 14/02 100%. Patient refusing to prone but has been repositioned to right side. MD stating that to see how he recovers. MD would like patient to be able to see family prior to intubating if it comes to that.
--- NOTE | 2019-12-09 11:40 | NUR ---
MD Dr Nuno at bedside. Made aware of BiPAP/CPAP setting changes and Dr Hung's discussion with RN. Agreed to allow family to see patient.
--- NOTE | 2019-12-09 12:10 | NUR ---
T/C from patient's daughter, Starr. Password verified. Updated on patient status to include possibility of intubating patient and MD's request for family to see patient prior to intubation. Daughter stated that she will not be able to come with patient's until after 1600. Will continue to monitor and notify family of any changes.
--- NOTE | 2019-12-09 14:30 | NUR ---
FAMILY Patient's , Rosetta and daughter, Starr to see patient. Dr Hung spoke to both via telephone. Plan is to intubate patient due to hypoxia. Family able to talk to patient via phone with nurses assistance. Explained to family that patient will be transferred to ICU prior to intubation. Will continue to update family as needed. Rosetta, (setswana speaker) and Starr, daughter [phone].
[2019-12-09] MEDS ORDERED: ROCURONIUM 10MG/ML 10ML VIAL IV ONE (15:12)
[2019-12-09] MEDS ORDERED: SUCCINYLCHOLINE CHLORIDE 20 MG/ML 10ML VIAL IV ONE (15:13)
--- NOTE | 2019-12-09 15:15 | NUR ---
TRANSFER Report given to MENDEL Cuenca. Patient to be transferred to ICU for intubation by Dr Hung. Family is aware. Patient to be transported via bed with RT and bedside monitor.
[2019-12-09] MEDS ORDERED: fentaNYL Drip 2500mCg/250mlNS 250 ML IV ONE (15:28)
[2019-12-09] MEDS ORDERED: MIDAZOLAM DRIP 50 mg/50mL 50 ML IV ONE ×2 (15:28→19:55)
[2019-12-09] MEDS ORDERED: hydrALAZINE HCL 20 MG/ML VL IV PRN (15:30)
--- NOTE | 2019-12-09 15:45 | NUR ---
PT TRANSPORTED FROM [facility] TO ICU BED 102 AND PLACED ON BIPAP SETTINGS: 14/10, BUR 12, 100% ON A FULL TOTAL FACE MASK. MENDEL VERGARA AT BEDSIDE. PT WAS TRANSPORTED WITH 15L OXYMIZER AND 15L NRB WITH AMBUBAG. WAITING FOR DR. NORTON TO ARRIVE TO INTUBATE PT. WILL CONTINUE TO MONITOR PT.
[2019-12-09] MEDS ORDERED: SODIUM CHLORIDE 0.9% 1,000 ML IV SCH (16:30)
--- NOTE | 2019-12-09 16:35 | NUR ---
BIPAP SETTINGS CHANGED TO 18/10 BUR 12, 100% PER DR. NORTON. SPO2 87%, VT 668, RR 29, BP 122/71, HR 94. VENTILATOR SET UP AT BEDSIDE AND INTUBATION TRAY. WAITING FOR DR. NORTON FOR POSSIBLE INTUBATION. WILL CONTINUE TO MONITOR PT.
--- NOTE | 2019-12-09 16:39 | NUR ---
SPOKE WITH DR LESA BRAGG SPO2 82% ON 14/10 BIPAP SETTINGS AND REMAINS A/O X4. NEW ORDER FOR 18/10 AND ABG IN 1 HR. KONG RT AWARE.
[2019-12-09] MEDS ORDERED: ETOMIDATE (2MG/ML) 20ML VIAL IV ONE (18:01)
[2019-12-09] MEDS ORDERED: MIDAZOLAM HCL 1MG/1ML-2 ML VIAL ONE (18:01)
[2019-12-09] MEDS ORDERED: NOREPINEPHRINE 8 MG/250ML KIT 250 ML IV ONE (18:29)
[2019-12-09] MEDS: MIDAZOLAM DRIP 50 mg/50mL 50 ML IV SCH (18:30)
[2019-12-09] MEDS: fentaNYL Drip 2500mCg/250mlNS 250 ML IV SCH (18:30)
[2019-12-09 18:49] LABS: Protein, Urine 28.1 mg/dL (0.0-11.9)
[2019-12-09] MEDS: NOREPINEPHRINE 8 MG/250ML KIT 250 ML IV SCH ×2 (19:00→23:28)
[2019-12-09] MEDS: PROPOFOL 100 ML IV SCH ×2 (19:00→21:00)
[2019-12-09] MEDS ORDERED: PROPOFOL 100 ML IV ONE (19:32)
[2019-12-09] MEDS ORDERED: TPN PER PHARMACY IV NR ×8 (20:00)
--- NOTE | 2019-12-09 20:00 | NUR ---
TRAIN OF FOUR (TOF) VOLTAGE SETTING 10 4/4
[2019-12-09] MEDS ORDERED: PHENYLEPHRINE IV 250 ML IV ONE (20:01)
[2019-12-09] MEDS ORDERED: VASOPRESSIN 20 UNIT/ML ONE (20:03)
[2019-12-09] MEDS: VASOPRESSIN 50 UNITS in D5W 5% 247.5 ML IV SCH (20:15)
[2019-12-09] MEDS: PHENYLEPHRINE IV 250 ML IV SCH ×2 (20:15→23:27)
[2019-12-09] MEDS: ATRACURIUM BESYLATE 1,000 MG in D5W 5% 150 ML IV SCH (20:45)
[2019-12-09] MEDS: ATORVASTATIN 20 MG TAB PO SCH (22:00)
[2019-12-09] MEDS: traZODone HCL 50 MG TAB PO SCH (22:00)
--- NOTE | 2019-12-09 22:00 | NUR ---
PO MEDICATIONS HELD PATIENT IN PRONE POSITION ASPIRATION PRECAUTION
--- NOTE | 2019-12-09 22:03 | NUR ---
AT 1820 DR NORTON AT BEDSIDE AND INTUBATED PATIENT SIZE 8/24 AT LIP AC 24, TV 600, PEEP 12 AND FIO2 100%. PATIENT TOLERATED WELL BUT DIFFICULT TO SEDATE AFTER. FENTANYL/VERSED/DIPRIVAN ORDER OBTAINED FROM DR NORTON AND STARTED. LEVOPHED/NEOSYNEPHRINE AND VASOPRESSIN ALSO ORDERED AND STARTED. ATRACURIUM GTT ORDERED AND PATIENT WAS STARTED ON PARALYTIC WITH BASELINE TOF 4/4 WITH 10 MA AFTER BLOOD PRESSURE STABILIZED. LOI DTR AWARE OF INTUBATION, PLAN OF CARE AND STATUS. REPORT GIVEN TO OLVIN OGLESBY AROUND 2100. PATIENT WAS PLACED IN PRONE POSITION WITH ALL TUBES/LINES INTACT WITH [address] NORTON AT BEDSIDE[address] MCELROY IN PLACE PER DR CAN ORDER AROUND 1630. NGT IN PLACE AFTER INTUBATION WITH DR NORTON ORDER. AFTER INTUBATION DR NORTON PLACED LEFT IJ TLC AND RIGHT RADIAL ARTERIAL LINE IN WHICH PATIENT TOLERATED BOTH PROCEDURES WELL.
[2019-12-10] VITALS (97 sets, daily range): BP systolic 77–174; BP diastolic 42–119
[2019-12-10] MEDS: MIDAZOLAM DRIP 50 mg/50mL 50 ML IV SCH (00:07)
[2019-12-10] MEDS ORDERED: SODIUM BICARBONATE 8.4 % INJ 50ML VIAL IV ONE ×3 (00:12→14:30)
--- NOTE | 2019-12-10 00:18 | NUR ---
VENT CHANGE PER MD NORTON VERBAL ORDER. NEW SETTINGS AC 28 VT 600 +12 TITRATE TO KEEP GREATER THAN 92%
[2019-12-10] MEDS: InsuLIN REG 1unit/0.01ml Soln (100units/ml) SC SCH ×3 (00:55→11:29)
--- NOTE | 2019-12-10 01:07 | NUR ---
PAGED MED REGARDING HIGH BLOOD SUGAR 452 NO NEW ORDERS, CONTINUE TO MONITOR
[2019-12-10] MEDS: PROPOFOL 100 ML IV SCH (03:02)
[2019-12-10] MEDS: PHENYLEPHRINE IV 250 ML IV SCH ×3 (03:02→22:20)
[2019-12-10 04:17] LABS: Hemoglobin 16.3 g/dL (13.5-17.5)
[2019-12-10 04:22] LABS: Hematocrit 49.5 % (41.0-53.0); Mean Corpuscular Hemoglobin 32.4 pg (28.0-32.0); Mean Corpuscular Hgb Conc. 32.9 g/dL (32.0-36.0); Mean Corpuscular Volume 98.4 fL (80.0-100.0); Platelet Count (auto) 147 10^3/uL (140-450); Red Blood Cells 5.03 10^6/uL (4.5-5.90); White Blood Cell 19.4 10^3/uL (4.4-10.8)
[2019-12-10 04:35] LABS: Basophils % (manual) 0 (0.0-2.0); Blast Cells 0; Eosinophils % (manual) 0 (0-7); Metamyelocytes % 0; Monocytes % (manual) 0 (0-12); Myelocytes % 0; Promyelocytes % 0; Reactive Lymphocytes 0
[2019-12-10 04:36] LABS: Albumin 2.3 g/dL (3.4-5.0); Calcium 7.2 mg/dL (8.5-10.1); Magnesium 3.2 mg/dL (1.6-2.6); Potassium 5.1 mmol/L (3.5-5.1)
[2019-12-10 04:41] LABS: BUN/Creatinine Ratio 31.2; Bilirubin, Total 0.7 mg/dL (0.2-1.0); CRP High Sensitivity 0.65 mg/dL (< 0.3); Phosphorus 5.8 mg/dL (2.5-4.90); Total Protein 6.2 g/dL (6.4-8.2)
[2019-12-10 04:47] LABS: Band Neutrophils % (manual) 42; Lymphocytes % (manual) 6 (10.0-50.0)
[2019-12-10] MEDS: SALINE 0.65 % NASAL SPRAY 45ML BOTTLE EACHNOSTRI SCH ×4 (05:25→22:00)
[2019-12-10] MEDS: ACCU-CHEK COMFORT CURVE STRIP VI SCH ×10 (05:52→22:30)
[2019-12-10] MEDS: DexAMETHasone SOD PHOS 10MG/1ML VIAL INJ IV SCH (09:09)
[2019-12-10] MEDS: SODIUM CHLOR 0.9% PF (SALINE LOCK) 10ML VIAL/SYR IV SCH ×2 (09:09→22:21)
[2019-12-10] MEDS: THIAMINE 100mg/ml INJ (200mg/2ml VIAL) IV SCH ×2 (09:09→22:20)
[2019-12-10] MEDS: ENOXAPARIN SOD 100 MG/1 ML SYRINGE SC SCH ×2 (09:09→22:22)
--- NOTE | 2019-12-10 09:45 | NUR ---
SPOKE WITH LOI POWELL UPDATED ON POC
--- NOTE | 2019-12-10 10:20 | NUR ---
DR NORTON AT BEDSIDE 4 RTS AND 3 RNS AT BEDSIDE WELL TO ASSIST IN CHANGING FROM PRONE POSITION TO SUPINE, ALL TUBES LINES REMAINED INTACT AND PATIENT STABLE, CXR OBTAINED Addendum: 12/10/19 at 1710 by Otto Wellington RN DR NORTON AWARE OF BLOOD SUGAR 517 AT THIS TIME
--- NOTE | 2019-12-10 10:30 | NUR ---
TPN SHUT OFF AT THIS TIME DUE TO HIGH BLOOD SUGARS
--- NOTE | 2019-12-10 10:30 | NUR ---
EBLL DEVRIES REGARDING HIGH BLOOD SUGARS AWAITING CALL BACK Addendum: 12/10/19 at 1209 by Otto Wellington RN 517, 20 UNITS REGULAR INSULIN GIVEN
[2019-12-10] MEDS: FAMOTIDINE 20 MG TAB PO SCH ×2 (11:00→22:00)
[2019-12-10] MEDS: ASCORBIC ACID 1,000 MG TAB PO SCH ×2 (11:00→22:00)
--- NOTE | 2019-12-10 11:00 | NUR ---
PAGED X2 FOR HIGH BLOOD SUGAR
--- NOTE | 2019-12-10 11:19 | NUR ---
Nutrition Consult/ Followup Note Wt 88.5 kg Pt`s in isolation as COVID +ve. pt`s intubated sedated with propofol @ 21.24 ml/hr providing 560 kcals from fats. pt is currently NPO. pt is now on PN support @ 50 ml/hr providing 1190 kcals and 60 gm proteins 950 NCP. pt with adequate PN support as it meets 90-98% kcals and 77-99% proteins with propofol on board Est energy needs ABW 77 [id number] kcal (23-25 kcal/kg ABW) Est protein needs 61-77g (0.8-1.0g/kg ABW) Reassessed as pt with ckd and elev RFT and intubated Labs: BUN 69 H, CREAT 2.21 H, CA 7.2 L, ALB 2.3 L, GLU 497 H BM: pt has no BM reported per RN note Skin: BS 14 mod risk, full details in health care coordinator note. PES: Obesity aeb pt with a BMI of 30.5kg/m2 r/t caloric intake in excess of needs Comments: Will continue to monitor NPO status, PN tolerance, skin status, pertinent labs and weight trends.F/u mod 2-3 days Rec: 1) Continue PN support to meet > 75% of needs. 2) advance diet as medially feasible. 3) Refer pt to OPD on DC 4) Continue current plan of care
--- NOTE | 2019-12-10 11:30 | NUR ---
PER TAMELA RN SPOKE WITH DR DEVRIES REGARDING HIGH BLOOD SUGARS DR GAVE ORDER FOR INSULIN DRIP
--- NOTE | 2019-12-10 11:40 | NUR ---
INFORMED DR MONDRAGON OF PATIENT'S ELEVATE BLOOD SUGAR LEVELS-ORDERS RECEIVED.
[2019-12-10] MEDS ORDERED: DEXTROSE (50%) 50ML SYRG IV PRN (11:45)
[2019-12-10] MEDS: SENNA 8.6 MG TAB PO SCH (12:00)
[2019-12-10] MEDS: CHOLECALCIFEROL (VITD3) 2,000 UNIT CAP PO SCH (12:00)
[2019-12-10] MEDS ORDERED: ALBUMIN 25% 100 ML IV ONE (12:00)
[2019-12-10] MEDS: ZINC SULFATE 220mg CAP or TAB PO SCH (12:04)
--- NOTE | 2019-12-10 12:07 | NUR ---
DR CAN AT BEDSIDE, AWARE OF LABS INCLUDING HIGH BLOOD SUGAR, UOP AND CURRENT IV GTTS. DR GAVE NEW ORDERS.
[2019-12-10] MEDS: SODIUM BICARBONATE 50ML VIAL 50 ML in SOD CHL 0.45% 1,000 ML IV SCH ×2 (12:30→20:45)
[2019-12-10] MEDS: CALCIUM ACETATE 667 MG CAP PO SCH ×2 (12:30→18:34)
[2019-12-10] MEDS: InsuLIN R (HUMAN) 100 UNITS in SODIUM CHL 0.9% 99 ML IV SCH ×2 (12:45→16:51)
--- NOTE | 2019-12-10 12:57 | NUR ---
WOUND CARE NOTE: Wound care in to see patient per wound care request regarding skin integrity issue that are noted by bedside nurse upon assessment. Bedside nurse took photograph of patient's skin issue upon discovery for reference. Patient is 74 years old male with admitting diagnosis of CoVid, Pneumonia. Patient is resting in ICU bed in Rm. 102. Patient is intubated, sedated and mechanically ventilated. Patient appears to be in no pain using Samaniego Broderick Faces Pain Scale. His Huseyin score is 13. Skin/wound assessment done with the assistance of patient's nurse, MENDEL Menjivar. Noted patient's nose bridge and chin has non-blanchable redness, light purple ecchymosis. Bedside nurse reported that it is not certain if the redness to nose bridge is from longer use of BiPap prior intubation or due to proning. She reported and showed that they are using face cushion/pad during proning. Skin is intact, left open to air. Patient's sacral and back are examined, no open wound or pressure injury noted. Patient is receiving BID/PRN cleaning and application Z Guard cream to sacral , buttocks as preventative. Patient tolerated well, repositioned for comfort facing his Rt. side, redistributed pressure points with pillows. MENDEL Menjivar at bedside. RECOMMENDATION: Nursing to continue with BID/PRN cleaning and application of Barrier cream to sacral/buttocks as preventative, frequent turning and repositioning schedule as condition permits, redistribute pressure points with pillows, elevate heels on pillows,continue monitoring by wound care while patient is hospitalized. Addendum: 12/10/19 at 1635 by Amalia England RN Amended: Links added.
--- NOTE | 2019-12-10 14:30 | NUR ---
DR NORTON AWARE OF ABG RESULTS, NEW ORDER RECEIVED FOR 2 AMPS SODIUM BICARBONATE, DR STATED HE WILL COME TO BEDSIDE TO PRONE PATIENT AGAIN.
--- NOTE | 2019-12-10 15:45 | NUR ---
DR NORTON AT BEDSIDE WITH X 4 RTS AND 3 RNS, PLACED PATIENT IN PRONE POSITION AGAIN WITH ALL TUBES/LINES REMAIN INTACT
--- NOTE | 2019-12-10 17:09 | NUR ---
UPDATED LOI DTR OF PATIENT OVER PHONE ALL QUESTIONS/CONCERNS ADDRESSED.
--- NOTE | 2019-12-10 18:37 | NUR ---
DR NORTON AWARE OF LATEST ABG RESULTS, GAVE ORDER TO TITRATE FIO2 TO KEEP SPO2 ABOVE 92%. RUBY PARDO AWARE.
--- NOTE | 2019-12-10 18:38 | NUR ---
HELD PO MEDS ORDERED FOR 1800 DUE TO HIGH RISK FOR ASPIRATION DUE TO PRONE POSITION Addendum: 12/10/19 at 1839 by Otto Wellington RN ALSO HELD NASAL SPRAY, UNABLE TO ADMINISTER INTO NARES IN PRONE POSITION
--- NOTE | 2019-12-10 20:00 | NUR ---
UNABLE TO PERFORM FULL ASSESSMENT PATIENT IS IN PRONE POSITION UNABLE TO ASSESS FACIAL DTI's
[2019-12-10] MEDS: VASOPRESSIN 50 UNITS in D5W 5% 247.5 ML IV SCH (20:15)
[2019-12-10] MEDS: ATRACURIUM BESYLATE 1,000 MG in D5W 5% 150 ML IV SCH (20:27)
[2019-12-10] MEDS: fentaNYL Drip 2500mCg/250mlNS 250 ML IV SCH (20:29)
[2019-12-10] MEDS: TPN*HIGH CONC* PER PHARMACY IV NR ×9 (20:30)
[2019-12-10] MEDS: ATORVASTATIN 20 MG TAB PO SCH (22:00)
[2019-12-10] MEDS: NOREPINEPHRINE 8 MG/250ML KIT 250 ML IV SCH (22:00)
[2019-12-10] MEDS: traZODone HCL 50 MG TAB PO SCH (22:00)
--- NOTE | 2019-12-10 22:00 | NUR ---
2200 MEDICATIONS HELD aspiration precaution, prone position
[2019-12-11] VITALS (97 sets, daily range): BP systolic 71–172; BP diastolic 35–82
[2019-12-11] MEDS: ACCU-CHEK COMFORT CURVE STRIP VI SCH ×16 (00:26→22:45)
[2019-12-11] MEDS: PROPOFOL 100 ML IV SCH ×5 (00:36→18:32)
[2019-12-11] MEDS: MIDAZOLAM DRIP 50 mg/50mL 50 ML IV SCH ×4 (00:36→18:32)
[2019-12-11] MEDS: PHENYLEPHRINE IV 250 ML IV SCH ×3 (04:02→15:17)
[2019-12-11 04:05] LABS: Basophils # (auto) 0 10 ^3/uL (0-0.2); Basophils % (auto) 0.1 % (0.0-2.0); Eosinophils # (auto) 0.1 10 ^3/uL (0-0.8); Eosinophils % (auto) 0.6 % (0.0-7.0); Hematocrit 43.6 % (41.0-53.0); Hemoglobin 14.8 g/dL (13.5-17.5); Lymphocytes # (auto) 0.4 10 ^3/uL (0.4-5.4); Lymphocytes % (auto) 2.4 % (10.0-50.0); Mean Corpuscular Hemoglobin 32.4 pg (28.0-32.0); Mean Corpuscular Hgb Conc. 33.9 g/dL (32.0-36.0); Mean Corpuscular Volume 95.6 fL (80.0-100.0); Monocytes # (auto) 0.3 10 ^3/uL (0-1.3); Monocytes % (auto) 2.2 % (0.0-12.0); Neutrophils # (auto) 13.8 10 ^3/uL (1.6-8.6); Neutrophils % (auto) 94.7 % (37.0-80.0); Nucleated Red Blood Cells % 0.1 %; Platelet Count (auto) 81 10^3/uL (140-450); Red Blood Cells 4.56 10^6/uL (4.5-5.90); White Blood Cell 14.6 10^3/uL (4.4-10.8)
[2019-12-11 04:19] LABS: Albumin 2.4 g/dL (3.4-5.0); Calcium 7.2 mg/dL (8.5-10.1); Magnesium 2.8 mg/dL (1.6-2.6); Potassium 4.9 mmol/L (3.5-5.1)
[2019-12-11 04:28] LABS: BUN/Creatinine Ratio 34.7; Bilirubin, Total 0.8 mg/dL (0.2-1.0); CRP High Sensitivity 1.33 mg/dL (< 0.3); Phosphorus 2.2 mg/dL (2.5-4.90); Total Protein 5.5 g/dL (6.4-8.2)
[2019-12-11] MEDS: SODIUM BICARBONATE 50ML VIAL 50 ML in SOD CHL 0.45% 1,000 ML IV SCH ×2 (05:30→06:16)
[2019-12-11] MEDS: SALINE 0.65 % NASAL SPRAY 45ML BOTTLE EACHNOSTRI SCH ×4 (06:00→21:22)
--- NOTE | 2019-12-11 07:00 | NUR ---
REPORT RECEIVED FROM HEALTH AND SAFETY TECH NURSE. PATIENT RESTING IN BED AT THIS TIME INTUBATED AND DEEPLY SEDATED. RESPIRATIONS EVEN AND UNLABORED, PATIENT IN PRONE POSITION. NO SIGNS OF ACUTE DISTRESS NOTED. BED IN LOW POSITION. WILL CONTINUE TO MONITOR.
[2019-12-11] MEDS: CALCIUM ACETATE 667 MG CAP PO SCH ×3 (08:00→17:36)
--- NOTE | 2019-12-11 08:15 | NUR ---
TOF ASSESSES PATIENT STATUS ON PARALYTIC. PER [employer] PRODUCER NURSE BASELINE VOLTAGE NEEDED IS 10. PLACED ON 10 AND OBTAINED 2/4 TWITCHES ON CURRENT MEDICATION SETTING. PATIENT IS THERAPEUTIC WILL CONTINUE TO MONITOR.
--- NOTE | 2019-12-11 09:15 | NUR ---
UPDATED DAUGHTER LOI ON PATIENT STATUS AND PLAN OF CARE. ALL QUESTIONS AND CONCERNS ADDRESSED AT THIS TIME. INFORMED WILL CALL WITH ANY CHANGES.
--- NOTE | 2019-12-11 09:45 | NUR ---
DR NORTON AT BEDSIDE TO ASSESS PATIENT AND DISCUSS PLAN OF CARE.
[2019-12-11] MEDS: SODIUM CHLOR 0.9% PF (SALINE LOCK) 10ML VIAL/SYR IV SCH ×2 (10:00→22:24)
[2019-12-11] MEDS: CHOLECALCIFEROL (VITD3) 1,000UNIT=25mCg TAB PO SCH (10:00)
[2019-12-11] MEDS: DexAMETHasone SOD PHOS 10MG/1ML VIAL INJ IV SCH (10:00)
[2019-12-11] MEDS: THIAMINE 100mg/ml INJ (200mg/2ml VIAL) IV SCH ×2 (10:00→22:24)
[2019-12-11] MEDS: ASCORBIC ACID 1,000 MG TAB PO SCH ×2 (10:00→21:23)
[2019-12-11] MEDS ORDERED: ENOXAPARIN SOD 80 MG/0.8ML SYRINGE SC SCH (10:00)
[2019-12-11] MEDS: ZINC SULFATE 220mg CAP or TAB PO SCH (10:00)
[2019-12-11] MEDS: ENOXAPARIN SOD 40 MG/0.4 ML SYRINGE SC SCH (10:00)
[2019-12-11] MEDS: SENNA 8.6 MG TAB PO SCH (10:00)
--- NOTE | 2019-12-11 10:00 | NUR ---
POSITION CHANGE PATIENT PLACED SUPINE FROM PRONE POSITION WITH 4 NURSES, 3 RT, AND DR NORTON AT BEDSIDE. PATIENT TOLERATED WELL. NOTED OPEN WOUNDS TO CHIN AND UNDER CHIN AREA WELL ABOVE RIGHT EAR. WILL TAKE PHOTOS AND INFORM WOUND CARE NURSE OF CHANGES. MD AWARE.
[2019-12-11] MEDS ORDERED: SODIUM PHOSPHATES 20 MEQ in SODIUM CHL 0.9% 100 ML IV ONE (10:30)
[2019-12-11] MEDS: fentaNYL Drip 2500mCg/250mlNS 250 ML IV SCH ×2 (10:42→22:47)
[2019-12-11] MEDS: FAMOTIDINE (10MG/ML) 2ML VL IV SCH ×2 (10:56→22:24)
[2019-12-11] MEDS: SOD CHL 0.45% 1,000 ML IV SCH (11:27)
[2019-12-11] MEDS ORDERED: CALCIUM GLUC 4.65meq/50ml D5AE 50 ML IV ONE (12:30)
[2019-12-11] MEDS: InsuLIN R (HUMAN) 100 UNITS in SODIUM CHL 0.9% 99 ML IV SCH (12:44)
--- NOTE | 2019-12-11 13:50 | NUR ---
PARALYTIC RESTARTED PER MD PRIOR TO PRONING PATIENT. Addendum: 12/11/19 at 1718 by Mikaela Bustillo RN TOF IS 4/4 TWITCHES OBTAINED PRIOR TO STARTING DRIP
--- NOTE | 2019-12-11 13:50 | NUR ---
PARALYTIC STOPPED PER DR NORTON WHILE PATIENT IS SUPINE. RESTART PRIOR TO PRONING PATIENT.
--- NOTE | 2019-12-11 15:30 | NUR ---
TOF ASSESSES PATIENT STATUS ON PARALYTIC. PLACED ON 10 AND OBTAINED 4/4 TWITCHES ON CURRENT MEDICATION SETTING, INCREASED DRIP PER PROTOCOL. WILL CONTINUE TO MONITOR.
--- NOTE | 2019-12-11 16:00 | NUR ---
POSITIONING PATIENT PLACED IN PRONE POSITION WITH 4 NURSES, 3 RT, AND DR NORTON AT BEDSIDE. PATIENT TOLERATED WELL. WILL CONTINUE TO MONITOR.
--- NOTE | 2019-12-11 16:30 | NUR ---
TOF ASSESSES PATIENT STATUS ON PARALYTIC. PLACED ON 10 AND OBTAINED 4/4 TWITCHES ON CURRENT MEDICATION SETTING, INCREASED DRIP PER PROTOCOL. WILL CONTINUE TO MONITOR.
--- NOTE | 2019-12-11 17:30 | NUR ---
TOF ASSESSES PATIENT STATUS ON PARALYTIC. PLACED ON 10 AND OBTAINED 0/4 TWITCHES ON CURRENT MEDICATION SETTING, DECREASED DRIP PER PROTOCOL. WILL CONTINUE TO MONITOR.
--- NOTE | 2019-12-11 18:00 | NUR ---
TOF ASSESSES PATIENT STATUS ON PARALYTIC. PLACED ON 10 AND OBTAINED 2/4 TWITCHES ON CURRENT MEDICATION SETTING. WILL CONTINUE TO MONITOR.
--- NOTE | 2019-12-11 19:50 | NUR ---
OPEN NOTES ASSUMED CARE OF PATIENT. PATIENT ON ISOLATION FOR POSITIVE COVID. SEDATED WITH IV PROPOFOL,VERSED AND FENTANYL. PATIENT IS PARALYZED TOO WITH ATRACIUM. SEE IV SPREADSHEET PUPILS ARE BOTH PIN POINT, NO COUGH AND GAG NOTED. PATIENT IS ON PRONE POSITION NOW TILL TOMORROW AT 0900 OR 1100HRS PER REPORT. INTUBATED AND VENTILATED ON AC MODE, FIO2 80%. LUNG SOUNDS CLEAR DIMINISHED. UNABLE TO SUCTIONED ORALLY WELL, TRIED DOING ORAL CARE TOO. HR 58/MIN, BP 100-110 MMHG SYSTOLIC. WITH RIGHT RADIAL ARTERIAL LINE , LEVELLED AND ZEROED, GOOD WAVEFORM NOTED. WITH IV LEVOPHED AND NEOSYNEPHRINE FOR BP SUPPORT. FULL ASSESSMENT DONE. REFER INTERVENTIONS.
[2019-12-11] MEDS: ATRACURIUM BESYLATE 1,000 MG in D5W 5% 150 ML IV SCH (20:00)
[2019-12-11] MEDS ORDERED: TPN*HIGH CONC* PER PHARMACY IV NR ×7 (20:00)
--- NOTE | 2019-12-11 20:05 | NUR ---
TOF PATIENT ON PARALYTIC. PLACED ON 10 MA , OBTAINED 2/4 TWITCHES ON CURRENT MEDICATION SETTING. WILL CONTINUE TO MONITOR.
[2019-12-11] MEDS: TPN*HIGH CONC* PER PHARMACY IV NR ×9 (20:10)
[2019-12-11] MEDS: VASOPRESSIN 50 UNITS in D5W 5% 247.5 ML IV SCH (20:15)
[2019-12-11] MEDS: traZODone HCL 50 MG TAB PO SCH (21:22)
[2019-12-11] MEDS: ATORVASTATIN 20 MG TAB PO SCH (21:23)
--- NOTE | 2019-12-11 22:00 | NUR ---
ORAL/OGT MEDICATIONS NOT GIVEN PATIENT IS ON PRONE POSITION
[2019-12-12] VITALS (97 sets, daily range): BP systolic 83–229; BP diastolic 35–217
--- NOTE | 2019-12-12 | NUR ---
TOF ASSESS PATIENT ON PARALYTIC AGENT. PLACED AT 10 MA AND OBTAINED 2/4 TWITCHES ON CURRENT MEDICATION SETTING. WILL CONTINUE TO MONITOR.
--- NOTE | 2019-12-12 00:02 | NUR ---
UNABLE TO DO PROPER ORAL CARE PT IS ON PRONE POSITION
[2019-12-12] MEDS: ACCU-CHEK COMFORT CURVE STRIP VI SCH ×15 (00:05→20:53)
[2019-12-12] MEDS: MIDAZOLAM DRIP 50 mg/50mL 50 ML IV SCH ×5 (00:39→18:14)
[2019-12-12] MEDS: PROPOFOL 100 ML IV SCH ×5 (00:39→19:02)
[2019-12-12] MEDS: PHENYLEPHRINE IV 250 ML IV SCH (02:25)
[2019-12-12] MEDS: SOD CHL 0.45% 1,000 ML IV SCH ×2 (02:55→16:24)
[2019-12-12 04:09] LABS: Basophils # (auto) 0 10 ^3/uL (0-0.2); Eosinophils # (auto) 0 10 ^3/uL (0-0.8); Eosinophils % (auto) 0.2 % (0.0-7.0); Lymphocytes # (auto) 0.5 10 ^3/uL (0.4-5.4); Monocytes # (auto) 0.3 10 ^3/uL (0-1.3); Neutrophils # (auto) 11.4 10 ^3/uL (1.6-8.6); Red Cell Distribution Width 13.9 % (11.8-14.3); White Blood Cell 12.2 10^3/uL (4.4-10.8)
[2019-12-12 04:11] LABS: Hematocrit 41.1 % (41.0-53.0); Hemoglobin 13.7 g/dL (13.5-17.5); Lymphocytes % (auto) 3.9 % (10.0-50.0); Mean Corpuscular Hemoglobin 32.3 pg (28.0-32.0); Mean Corpuscular Hgb Conc. 33.3 g/dL (32.0-36.0); Mean Corpuscular Volume 97.2 fL (80.0-100.0); Monocytes % (auto) 2.8 % (0.0-12.0); Neutrophils % (auto) 93.1 % (37.0-80.0); Platelet Count (auto) 62 10^3/uL (140-450); Red Blood Cells 4.23 10^6/uL (4.5-5.90)
[2019-12-12] MEDS: ATRACURIUM BESYLATE 1,000 MG in D5W 5% 150 ML IV SCH (04:14)
--- NOTE | 2019-12-12 04:14 | NUR ---
TOF ASSESS PATIENT ON PARALYTIC AGENT. RE SITED ELECTRODES. PLACED ON 10 AND OBTAINED 2/4 TWITCHES ON CURRENT MEDICATION SETTING. WILL CONTINUE TO MONITOR.
[2019-12-12 04:28] LABS: Calcium 7.7 mg/dL (8.5-10.1); Magnesium 2.7 mg/dL (1.6-2.6); Potassium 4.5 mmol/L (3.5-5.1)
[2019-12-12 04:40] LABS: Albumin 2.2 g/dL (3.4-5.0); BUN/Creatinine Ratio 36.2; Bilirubin, Total 0.8 mg/dL (0.2-1.0); CRP High Sensitivity 1.02 mg/dL (< 0.3); Phosphorus 1.9 mg/dL (2.5-4.90); Total Protein 5.1 g/dL (6.4-8.2)
[2019-12-12] MEDS: SALINE 0.65 % NASAL SPRAY 45ML BOTTLE EACHNOSTRI SCH ×4 (05:37→22:00)
--- NOTE | 2019-12-12 05:37 | NUR ---
NASAL SPRAY NOT GIVEN - PT IS STILL ON PRONE
--- NOTE | 2019-12-12 07:06 | NUR ---
Respiratory note: RECEIVED PATIENT ON V21 V200 VENT ORALLY INTUBATED WITH AN 8.0 ETT SECURED VIA MICKIE AT THE 24CM MARKING AT THE LIP, AND MECHANICALLY VENTILATED WITH THE CHARTED SETTINGS. SPO2 95%, LUNG SOUNDS DIM T/O, SCANT AMOUNT OF THIN CLEAR SECRETIONS WHEN SUCTIONED. SKIN IS WARM/DRY TO THE TOUCH AND THERE IS BREAKDOWN NOTED ON THE CHIN. PATIENT CURRENTLY IN PRONE POSITION. NO NEW AM CXR TO ASSESS. PATIENT IS UNRESPONSIVE TO BOTH VERBAL/TACTILE STIMULI AND IS SEDATED ON VERSED, PROPOFOL, AND FENTANYL DRIPS. HE IS RESTING COMFORTABLY AND TOLERATING VENT WELL, NO CHANGES MADE. VENT PLUGGED INTO RED OUTLET AND ALL ALARMS ARE SET AND AUDIBLE. WILL CONTINUE TO ASSESS PATIENT WELL VENTILATOR FUNCTION.
--- NOTE | 2019-12-12 07:15 | NUR ---
REPORT REPORT GIVEN TO MENDEL BOOTH
--- NOTE | 2019-12-12 07:25 | NUR ---
REPORT REPORT RECEIVED FROM JAMIE OGLESBY, CARE ASSUMED. PT OBSERVED SEDATED ON MECHANICAL VENTILATION IN PRONE POSITION. VS REMAINING STABLE AT THIS TIME. WILL CONTINUE TO MONITOR.
--- NOTE | 2019-12-12 07:50 | NUR ---
INITIAL CONTACT PT RESTING PRONE POSITION IN BED. AFEBRILE. NO DISTRESS NOTED. PT ON SEDATION OF VERSED, DIPRIVAN, AND FENTANYL. PARALYTIC IN USE. TRAIN OF FOUR NOTED 2/4 AT LEVEL 9. PHYSICAL ASSESSMENT COMPLETE. LUNG SOUNDS CLEAR TO DIMINISHED POSTERIOR LUNG MCCOLLUM. TOLERATING MECHANICAL VENTILATION AT THIS TIME. SEE SKIN/WOUND ASSESSMENT. RIGHT UPPER ARM PICC LINE, LEFT IJ TLC, DRESSINGS ARE CDI. MCELROY CATHETER PRESENT, PATENT, AND SECURED BELOW BLADDER. RIGHT RADIAL ARTERIAL INTACT. LINE CALIBRATED AND ZERO'D. ALARMS IN PLACE. BED LOCKED IN LOWEST POSITION, IN A SLIGHT [place]. WILL CONTINUE TO MONITOR.
[2019-12-12] MEDS: CALCIUM ACETATE 667 MG CAP PO SCH (08:00)
--- NOTE | 2019-12-12 08:00 | NUR ---
FAMILY SPOKE WITH PATIENT DAUGHTER LOI REGARDING STATUS AND PLAN OF CARE. ALL QUESTIONS AND CONCERNS ADDRESSED.
--- NOTE | 2019-12-12 08:25 | NUR ---
MEDICATION HELD PHOSLO HELD AT THIS TIME DUE TO PT BEING PRONE POSITION. PT PLAN TO BE REPOSITIONED SUPINE THIS MORNING.
--- NOTE | 2019-12-12 09:20 | NUR ---
MD VISIT DR. ERROL BOUDREAUX AT BEDSIDE. MD AWARE OF ABG RESULTS.
[2019-12-12] MEDS ORDERED: SODIUM PHOSP 40 MEQ in D5W 5% 250 ML IV ONE (09:30)
--- NOTE | 2019-12-12 09:30 | NUR ---
REPOSITIONING PT REPOSITION TO SUPINE WITH HEAD OF BED ELEVATED BY TWO RN, TWO RT'S, AND MD AT BEDSIDE. NO EVENTS OCCURRED. PT REMAINS STABLE AT THIS TIME. BP INCREASED AFTER POSITION CHANGED, SEE IV SPREADSHEET. RT PLACED PATIENT ON 100 FIO2 AFTER REPOSITIONING. R-RAY PAGED TO BEDSIDE. ORAL CARE, LINEN, AND GOWN CHANGE PERFORMED.
--- NOTE | 2019-12-12 09:30 | NUR ---
Respiratory note: ETT REPOSITIONED TO THE RIGHT SIDE AND RETAPED AT THIS TIME.
[2019-12-12] MEDS ORDERED: SODIUM PHOSPHATES 40 MEQ in D5W 5% 250 ML IV ONE (09:45)
--- NOTE | 2019-12-12 10:10 | NUR ---
MD VISIT ROUNDING ON PATIENT. MD REVIEWING MEDICAL CHART.
--- NOTE | 2019-12-12 10:15 | NUR ---
CXR CHEST XRAY AT BEDSIDE.
[2019-12-12] MEDS: THIAMINE 100mg/ml INJ (200mg/2ml VIAL) IV SCH ×2 (10:40→22:00)
[2019-12-12] MEDS: DexAMETHasone SOD PHOS 10MG/1ML VIAL INJ IV SCH (10:40)
[2019-12-12] MEDS: FAMOTIDINE (10MG/ML) 2ML VL IV SCH ×2 (10:40→22:00)
[2019-12-12] MEDS: SODIUM CHLOR 0.9% PF (SALINE LOCK) 10ML VIAL/SYR IV SCH ×2 (10:41→22:00)
[2019-12-12] MEDS: ASCORBIC ACID 1,000 MG TAB PO SCH ×2 (10:42→22:00)
[2019-12-12] MEDS: CHOLECALCIFEROL (VITD3) 1,000UNIT=25mCg TAB PO SCH (10:42)
[2019-12-12] MEDS: SENNA 8.6 MG TAB PO SCH (10:42)
[2019-12-12] MEDS: ZINC SULFATE 220mg CAP or TAB PO SCH (10:42)
[2019-12-12] MEDS: ENOXAPARIN SOD 40 MG/0.4 ML SYRINGE SC SCH (10:43)
[2019-12-12] MEDS: fentaNYL Drip 2500mCg/250mlNS 250 ML IV SCH (11:27)
--- NOTE | 2019-12-12 11:47 | NUR ---
MD VISIT DR.SREE BOUDREAUX AT BEDSIDE. MD AWARE OF LABS (PLATELET COUNT), VITALS, AND IV MEDICATIONS IN USE. NEW ORDERS RECEIVED.
--- NOTE | 2019-12-12 12:10 | NUR ---
FIO2 FIO2 DECREASED TO 80% ON VENTILATOR, PT MAINTAINING OXYGEN SATURATION GREATER THAN 95%.
--- NOTE | 2019-12-12 14:36 | NUR ---
Nutrition Consult/ Followup Note Wt: 76.0 kg Pt`s in isolation as COVID +ve. pt`s intubated sedated with propofol @ 21.24 ml/hr providing 560 kcals from fats. pt is currently NPO. pt is now on PN support @ 35 ml/hr providing 653 kcals and 80 gm proteins 333 NCP. pt with inadequate PN support as it meets 63-68% kcals and 103-122% proteins with propofol on board Est energy needs ABW 77 [id number] kcal (23-25 kcal/kg ABW) Est protein needs 61-77g (0.8-1.0g/kg ABW) Reassessed as pt with ckd and elev RFT and intubated Labs: BUN 34 H, CA 7.7 L, ALB 2.2 L, GLU 259 H BM: pt has no BM reported per RN note Skin: BS 9 low risk, full details in geriatric care manager note. PES: Obesity aeb pt with a BMI of 30.5kg/m2 r/t caloric intake in excess of needs Comments: Will continue to monitor NPO status, PN tolerance, skin status, pertinent labs and weight trends.F/u mod 2-3 days Rec: 1) Continue PN support to meet > 75% of needs. 2) advance diet as medially feasible. 3) Refer pt to OPD on DC 4) Continue current plan of care
--- NOTE | 2019-12-12 15:16 | NUR ---
TEMPERATURE RECTAL TEMPERATURE 99.9, COOLING MEASURES INITIATED.
--- NOTE | 2019-12-12 15:23 | NUR ---
FAMILY SPOKE WITH PATIENT DAUGHTER LOI REGARDING STATUS AND PLAN OF CARE. ALL QUESTIONS AND CONCERNS ADDRESSED.
[2019-12-12] MEDS: InsuLIN R (HUMAN) 100 UNITS in SODIUM CHL 0.9% 99 ML IV SCH ×2 (15:27→20:55)
--- NOTE | 2019-12-12 16:30 | NUR ---
WOUND CARE DRESSING CHANGE PERFORMED ON CHIN. SITE CLEANSED AND THERA-HONEY APPLIED.
--- NOTE | 2019-12-12 18:20 | NUR ---
FIO2 FIO2 INCREASED TO 90% ON VENTILATOR DUE TO PATIENT OXYGEN SATURATION MAINTAINING 89-91%. OXYGEN SATURATION NOW 93%.
--- NOTE | 2019-12-12 18:40 | NUR ---
PAGED PAGED REGARDING PHARMACIST RECOMMENDATION FOR ABX COVERAGE. MESSAGE LEFT, AWAITING CALL BACK.
--- NOTE | 2019-12-12 19:18 | NUR ---
REPORT REPORT GIVEN TO MEENAKSHI OGLESBY, CARE ENDORSED.
--- NOTE | 2019-12-12 19:30 | NUR ---
REPORT RECEIVED AND ASSUMED CARE; SEE INTERVENTIONS FOR ASSESSMENT; VS STABLE AT THIS TIME WITH EXCEPTION OF TEMP=99.6/RECTALLY AND COOLING MEASURES STARTED WITH ICE BAGS TO AXILLARY AREA, ROOM TEMP ADJUSTMENT, AND COOL CLOTH TO FOREHEAD; PT. INTUBATED/SEDATED/VENTED; WILL CONT. TO MONITOR.
[2019-12-12] MEDS ORDERED: TPN*HIGH CONC* PER PHARMACY IV NR ×9 (20:00)
[2019-12-12] MEDS: VASOPRESSIN 50 UNITS in D5W 5% 247.5 ML IV SCH (20:15)
[2019-12-12] MEDS: NOREPINEPHRINE 8 MG/250ML KIT 250 ML IV SCH (20:15)
[2019-12-12] MEDS: traZODone HCL 50 MG TAB PO SCH (22:00)
[2019-12-12] MEDS: ATORVASTATIN 20 MG TAB PO SCH (22:00)
[2019-12-13] VITALS (85 sets, daily range): BP systolic 70–206; BP diastolic 33–67
[2019-12-13] MEDS: ACCU-CHEK COMFORT CURVE STRIP VI SCH ×8 (01:00→21:52)
--- NOTE | 2019-12-13 02:00 | NUR ---
PT. TURNED TO RIGHT AND HAD X3 EPISODES OF ATTEMPTING TO GO INTO SVT AND SATS DROPPED TO 87%-88%; RETURNED BACK INTO ROOM AND PLACED PT. IN A LEFT TURN AND SATS CAME UP TO 91%; CONT. TO MONITOR; PT. DROPPED TO 88%-89% ON SATS; LAVAGE SUCTIONED PT. THROUGH ETT AND OROPHARYNX; PLACED PT. SUPINE; AND INCREASED FIO2 TO 100%; WILL CONT. TO MONITOR; INFORMED RT OF FIO2 INCREASE-BOTH OF US WILL CONT. TOO MONITOR.
[2019-12-13 03:13] LABS: Basophils # (auto) 0 10 ^3/uL (0-0.2); Basophils % (auto) 0.1 % (0.0-2.0); Eosinophils # (auto) 0.1 10 ^3/uL (0-0.8); Eosinophils % (auto) 0.8 % (0.0-7.0); Hematocrit 36.4 % (41.0-53.0); Hemoglobin 12.3 g/dL (13.5-17.5); Lymphocytes # (auto) 0.4 10 ^3/uL (0.4-5.4); Mean Corpuscular Hemoglobin 32.7 pg (28.0-32.0); Mean Corpuscular Hgb Conc. 33.9 g/dL (32.0-36.0); Mean Corpuscular Volume 96.5 fL (80.0-100.0); Monocytes # (auto) 0.8 10 ^3/uL (0-1.3); Monocytes % (auto) 8.2 % (0.0-12.0); Neutrophils # (auto) 8.5 10 ^3/uL (1.6-8.6); Neutrophils % (auto) 86.9 % (37.0-80.0); Nucleated Red Blood Cells % 0.2 %; Platelet Count (auto) 50 10^3/uL (140-450); Red Blood Cells 3.77 10^6/uL (4.5-5.90); Red Cell Distribution Width 13.4 % (11.8-14.3); White Blood Cell 9.8 10^3/uL (4.4-10.8)
[2019-12-13] MEDS: InsuLIN R (HUMAN) 100 UNITS in SODIUM CHL 0.9% 99 ML IV SCH ×2 (03:13→03:16)
[2019-12-13 03:26] LABS: Albumin 1.9 g/dL (3.4-5.0); Calcium 7.4 mg/dL (8.5-10.1); Magnesium 2.4 mg/dL (1.6-2.6); Potassium 4.3 mmol/L (3.5-5.1)
[2019-12-13 03:31] LABS: Bilirubin, Total 0.8 mg/dL (0.2-1.0); CRP High Sensitivity 0.48 mg/dL (< 0.3); Total Protein 4.7 g/dL (6.4-8.2)
[2019-12-13] MEDS: SOD CHL 0.45% 1,000 ML IV SCH ×2 (05:30→15:45)
[2019-12-13] MEDS: SALINE 0.65 % NASAL SPRAY 45ML BOTTLE EACHNOSTRI SCH ×4 (06:00→22:00)
--- NOTE | 2019-12-13 07:00 | NUR ---
REPORT RECEIVED FROM SOFTWARE CLERK NURSE. PATIENT RESTING IN BED AT THIS TIME INTUBATED AND SEDATED. RESPIRATIONS EVEN AND UNLABORED WITH LOW SATURATIONS IN THE HIG 80'S APPROX 88% AT THIS TIME. BED IN LOW POSITION,WILL CONTINUE TO MONITOR.
[2019-12-13] MEDS: PHENYLEPHRINE IV 250 ML IV SCH ×2 (07:35→15:55)
--- NOTE | 2019-12-13 08:00 | NUR ---
PATIENT TOO UNSTABLE TO TURN AT THIS TIME. PLACED PATIENT ON TURN ASSIST ON BED SETTING TO HELP PREVENT SKIN BREAKDOWN.
--- NOTE | 2019-12-13 09:20 | NUR ---
DR NORTON AT BEDSIDE TO ASSESS PATIENT AND DISCUSS PLAN OF CARE. PER MD MAY STOP INSULIN DRIP AND START PATIENT ON Q4HR MODERATE SLIDING SCALE. ALL ORDERS NOTED IN CHART.
[2019-12-13] MEDS: MIDAZOLAM DRIP 50 mg/50mL 50 ML IV SCH (09:25)
[2019-12-13] MEDS ORDERED: DEXTROSE (50%) 50ML SYRG IV PRN (09:30)
[2019-12-13] MEDS: ENOXAPARIN SOD 40 MG/0.4 ML SYRINGE SC SCH (10:00)
[2019-12-13] MEDS ORDERED: InsuLIN REG 1unit/0.01ml Soln (100units/ml) SC SCH ×2 (10:00→14:00)
[2019-12-13] MEDS: SODIUM CHLOR 0.9% PF (SALINE LOCK) 10ML VIAL/SYR IV SCH ×2 (10:00→22:00)
[2019-12-13] MEDS ORDERED: ACCU-CHEK COMFORT CURVE STRIP VI SCH ×2 (10:00→14:00)
[2019-12-13] MEDS: SENNA 8.6 MG TAB PO SCH (10:30)
[2019-12-13] MEDS: FAMOTIDINE (10MG/ML) 2ML VL IV SCH ×2 (10:30→22:00)
[2019-12-13] MEDS: THIAMINE 100mg/ml INJ (200mg/2ml VIAL) IV SCH ×2 (10:30→22:00)
[2019-12-13] MEDS: ASCORBIC ACID 1,000 MG TAB PO SCH ×2 (10:30→22:00)
[2019-12-13] MEDS: ZINC SULFATE 220mg CAP or TAB PO SCH (10:30)
[2019-12-13] MEDS: CHOLECALCIFEROL (VITD3) 1,000UNIT=25mCg TAB PO SCH (10:30)
[2019-12-13] MEDS: DexAMETHasone SOD PHOS 10MG/1ML VIAL INJ IV SCH (10:30)
[2019-12-13] MEDS: fentaNYL Drip 2500mCg/250mlNS 250 ML IV SCH (12:00)
[2019-12-13] MEDS: PROPOFOL 100 ML IV SCH (14:24)
[2019-12-13] MEDS: NOREPINEPHRINE 8 MG/250ML KIT 250 ML IV SCH (15:30)
[2019-12-13] MEDS ORDERED: levoFLOXacin 500MG 100 ML IV ONE ×2 (15:30→15:45)
--- NOTE | 2019-12-13 15:40 | NUR ---
DR Kamille ALEGRE ON UNIT TO ASSESS PATIENT AND DISCUSS PLAN OF CARE. MD AWARE OF PATIENTS CURRENT HIGH FIO2 REQUIREMENT AND UNABLE TO TURN PATIENT AT THIS TIME. MD ALSO MADE AWARE OF PATIENTS BLOOD SUGAR LEVELS AND THAT INSULIN DRIP WAS DISCONTINUED THIS MORNING WELL POSITIVE BLOOD CULTURES. PER MD START PATIENT ON LEVOFLOXACIN 500MG DAILY AND 1 DOSE NOW, LANTUS 20UNITS DAILY SUBQ AND 1 DOSE AT 1800. MD INFORMED THAT LOVENOX WAS HELD THIS AM DUE TO PLATELET COUNT OF 50, PER MD CONSULT DR Elsa HILL HEMATOLOGY. ALL ORDERS NOTED IN CHART.
[2019-12-13] MEDS: InsuLIN REG 1unit/0.01ml Soln (100units/ml) SC SCH ×2 (17:57→21:55)
[2019-12-13] MEDS ORDERED: INSULIN LANTUS (GLARGINE) 1 /0.01ml (100units/ml) SC ONE ×2 (18:00)
[2019-12-13] MEDS: ATRACURIUM BESYLATE 1,000 MG in D5W 5% 150 ML IV SCH (18:39)
--- NOTE | 2019-12-13 19:30 | NUR ---
REPORT RECEIVED AND ASSUMED CARE; PT. TOO UNSTABLE FOR TURNING; SEE INTERVENTIONS FOR ASSESSMENT; SEE IV SPREADSHEET FOR GTTS; VS STABLE AT THIS TIME WITH EXCEPTION TO TEMP=99.3/RECTALLY; COOLING MEASURES STARTED WITH ICE PACKS TO AXILLARY AREA; COOL WASHCLOTH TO FOREHEAD; ROOM TEMP DECREASED; WILL CONT. TO MONITOR.
[2019-12-13] MEDS ORDERED: TPN*HIGH CONC* PER PHARMACY IV NR ×10 (20:00)
[2019-12-13] MEDS: VASOPRESSIN 50 UNITS in D5W 5% 247.5 ML IV SCH (20:15)
[2019-12-13] MEDS: ATORVASTATIN 20 MG TAB PO SCH (22:00)
[2019-12-13] MEDS: traZODone HCL 50 MG TAB PO SCH (22:00)
[2019-12-14] VITALS (87 sets, daily range): BP systolic 60–241; BP diastolic 40–97
[2019-12-14] MEDS: PHENYLEPHRINE IV 250 ML IV SCH ×3 (00:15→16:55)
[2019-12-14] MEDS: SOD CHL 0.45% 1,000 ML IV SCH ×3 (01:45→18:58)
[2019-12-14] MEDS: ACCU-CHEK COMFORT CURVE STRIP VI SCH ×6 (04:30→22:28)
[2019-12-14] MEDS: InsuLIN REG 1unit/0.01ml Soln (100units/ml) SC SCH ×5 (04:30→20:00)
[2019-12-14 05:09] LABS: Basophils # (auto) 0 10 ^3/uL (0-0.2); Basophils % (auto) 0.1 % (0.0-2.0); Eosinophils # (auto) 0 10 ^3/uL (0-0.8); Eosinophils % (auto) 0.1 % (0.0-7.0); Hematocrit 39.1 % (41.0-53.0); Hemoglobin 13.1 g/dL (13.5-17.5); Lymphocytes # (auto) 0.5 10 ^3/uL (0.4-5.4); Lymphocytes % (auto) 5.6 % (10.0-50.0); Mean Corpuscular Hemoglobin 32.6 pg (28.0-32.0); Mean Corpuscular Hgb Conc. 33.5 g/dL (32.0-36.0); Mean Corpuscular Volume 97.3 fL (80.0-100.0); Monocytes % (auto) 10.2 % (0.0-12.0); Nucleated Red Blood Cells % 0.1 %; Platelet Count (auto) 52 10^3/uL (140-450); Red Blood Cells 4.02 10^6/uL (4.5-5.90); Red Cell Distribution Width 13.9 % (11.8-14.3); White Blood Cell 9.5 10^3/uL (4.4-10.8)
[2019-12-14 05:23] LABS: Albumin 1.9 g/dL (3.4-5.0); Calcium 7.1 mg/dL (8.5-10.1); Magnesium 2.7 mg/dL (1.6-2.6)
[2019-12-14 05:28] LABS: Pre Albumin 20.2 mg/dL (20.0-40.0); Total Protein 4.9 g/dL (6.4-8.2)
[2019-12-14] MEDS: SALINE 0.65 % NASAL SPRAY 45ML BOTTLE EACHNOSTRI SCH ×4 (06:00→22:00)
--- NOTE | 2019-12-14 07:30 | NUR ---
REPORT REPORT RECEIVED FROM MEENAKSHI OGLESBY, CARE ASSUMED.
[2019-12-14] MEDS: PROPOFOL 100 ML IV SCH (09:06)
[2019-12-14] MEDS: THIAMINE 100mg/ml INJ (200mg/2ml VIAL) IV SCH (09:07)
[2019-12-14] MEDS: DexAMETHasone SOD PHOS 10MG/1ML VIAL INJ IV SCH (09:07)
[2019-12-14] MEDS: FAMOTIDINE (10MG/ML) 2ML VL IV SCH (09:10)
--- NOTE | 2019-12-14 09:10 | NUR ---
FAMILY PATIENT DAUGHTER LOI CALLED FOR UPDATE. PASSWORD PROVIDED. UPDATED ON STATUS AND PLAN OF CARE.
[2019-12-14] MEDS: ZINC SULFATE 220mg CAP or TAB PO SCH (09:11)
[2019-12-14] MEDS: SODIUM CHLOR 0.9% PF (SALINE LOCK) 10ML VIAL/SYR IV SCH ×2 (09:11→22:28)
[2019-12-14] MEDS: SENNA 8.6 MG TAB PO SCH (09:11)
[2019-12-14] MEDS: CHOLECALCIFEROL (VITD3) 1,000UNIT=25mCg TAB PO SCH (09:12)
[2019-12-14] MEDS: ASCORBIC ACID 1,000 MG TAB PO SCH ×2 (09:12→22:00)
--- NOTE | 2019-12-14 09:21 | NUR ---
MD VISIT ROUNDMAME AT BEDSIDE. MD AWARE OF IV MEDICATIONS, LABS, AND VENTILATOR SETTINGS. ORDERS OBTAINED. MD WOULD LIKE TO PRONE PATIENT THIS AFTERNOON.
--- NOTE | 2019-12-14 09:50 | NUR ---
DESATURATION WHILE DOING ASSESSMENT, ORAL CARE, AND MOVING HEAD. PT BEGAN COUGHING. PATIENT OXYGEN SATURATION DECREASED TO 79%. 100% FIO2 OXYGEN BOOST GIVE. PT SUCTIONED VIA MOUTH AND ETT. MODERATE TO LARGE AMOUNT OF CREAMY, THICK, [place] SECRETIONS NOTED. VERY FOUL SMELLING. PT OXYGENATION MAININTAINING ONLY 82-85%. RT NOTIFIED. FIO2 INCREASED TO 100%. PT OXYGENATION NOW 91-92%. MD WANTS TO INCREASE SEDATION TO PREVENT PATIENT FROM COUGHING. OKAY TO PLACE PATIENT BACK ON PARALYTIC PRIOR TO PRONING. WILL CONTINUE TO MONITOR.
[2019-12-14] MEDS: MIDAZOLAM DRIP 50 mg/50mL 50 ML IV SCH ×2 (10:00→14:00)
[2019-12-14] MEDS ORDERED: levoFLOXacin 500MG 100 ML IV SCH ×2 (10:00)
[2019-12-14] MEDS ORDERED: INSULIN LANTUS (GLARGINE) 1 /0.01ml (100units/ml) SC SCH (10:00)
[2019-12-14] MEDS: INSULIN LANTUS (GLARGINE) 1 /0.01ml (100units/ml) SC SCH ×2 (10:00→22:29)
--- NOTE | 2019-12-14 10:20 | NUR ---
CXR X-RAY TECH AT BEDSIDE. WITH ACTIVITY, PT O2 DECREASED TO 88%, PT CONTINUES TO COUGH. SEDATION INCREASED. MD AWARE OF CONTINUES DESATURATION.
--- NOTE | 2019-12-14 12:23 | NUR ---
Nutrition Consult/ Followup Note Wt: 93.6 kg Pt`s in isolation as COVID +ve. pt`s intubated partially sedated with propofol @ 4.64 ml/hr providing 122 kcals from fats. Pt is currently NPO on PN support @ 43 ml/hr providing 747 kcals, 98 gm proteins and 355 NCP. Pt with inadequate PN support as it meets 39-42% of est kcals and 127-161% proteins. Will continue to monitor PO status, skin status, pertinent labs and weight trends. Will f/u in 2-3 days. Est energy needs ABW 77 [id number] kcal (23-25 kcal/kg ABW) Est protein needs 61-77g (0.8-1.0g/kg ABW) Reassessed as pt with ckd and elev RFT and intubated Labs: CA 7.1 L, ALB 1.9 L, GLU 235 H BM: Pt has no BM reported per RN note Skin: BS 9 low risk, full details in field care coordinator note. PES: Obesity aeb pt with a BMI of 30.5kg/m2 r/t caloric intake in excess of needs Comments: Will continue to monitor NPO status, PN tolerance, skin status, pertinent labs and weight trends.F/u mod 2-3 days Rec: 1) Continue PN support to meet > 75% of needs. 2) advance diet as medially feasible. 3) Refer pt to OPD on DC 4) Continue current plan of care
[2019-12-14] MEDS: ATRACURIUM BESYLATE 1,000 MG in D5W 5% 150 ML IV SCH (14:25)
--- NOTE | 2019-12-14 14:25 | NUR ---
PARALYTIC ATRACURIUM STARTED PRIOR TO PRONING. TOF 2/4 TICKS NOTED AT LEVEL 8.
[2019-12-14] MEDS: PANTOPRAZOLE 40 MG/10 ML VIAL INJ IV SCH (15:00)
[2019-12-14] MEDS ORDERED: INSULIN LANTUS (GLARGINE) 1 /0.01ml (100units/ml) SC ONE (15:15)
[2019-12-14] MEDS: NOREPINEPHRINE 8 MG/250ML KIT 250 ML IV SCH (15:30)
--- NOTE | 2019-12-14 15:30 | NUR ---
FAMILY PATIENT DAUGHTER LOI CALLED FOR UPDATE. PASSWORD PROVIDED. UPDATED ON STATUS AND PLAN OF CARE.
[2019-12-14] MEDS: fentaNYL Drip 2500mCg/250mlNS 250 ML IV SCH (16:00)
--- NOTE | 2019-12-14 16:10 | NUR ---
PRONE PT REPOSITIONED IN PRONE WITH TWO RT'S, TWO RN'S AND MD AT BEDSIDE. SUCCESSFUL POSITIONING WITHOUT ADVERSE EVENT. VS REMAINING STABLE AT THIS TIME. ALL EXTREMITIES AND BONY PROMINENCES OFF LOADED ON PILLOWS.
--- NOTE | 2019-12-14 18:00 | NUR ---
FAMILY DAUGHTER CALLED FOR UPDATE.
--- NOTE | 2019-12-14 18:00 | NUR ---
TOF NO TICKS NOTED AT THIS TIME. PARALYTIC TITRATED BACK DOWN TO 5 MCG.
--- NOTE | 2019-12-14 19:30 | NUR ---
REPORT RECEIVED AND ASSUMED CARE.
--- NOTE | 2019-12-14 19:33 | NUR ---
HEMATOLOGY CONSULT CONSULT CALLED TO ANSWERING SERVICE FOR .
--- NOTE | 2019-12-14 19:34 | NUR ---
REPORT REPORT GIVEN TO MEENAKSHI OGLESBY, CARE ENDORSED.
[2019-12-14] MEDS ORDERED: TPN*HIGH CONC* PER PHARMACY IV NR ×8 (20:00)
[2019-12-14] MEDS: TPN*HIGH CONC* PER PHARMACY IV NR ×8 (20:00)
[2019-12-14] MEDS ORDERED: TPN PER PHARMACY 0 ML IV SCH (20:15)
[2019-12-14] MEDS: VASOPRESSIN 50 UNITS in D5W 5% 247.5 ML IV SCH (20:15)
--- NOTE | 2019-12-14 20:15 | NUR ---
ASSESS PT.; RT. RADIAL BART IS POSITIONAL/TROUBLE-SHOT AND WHEN A GOOD WAVEFORM THE BART AND NIBP DO CORRELATE; PT. TEMP IS 100.4 RECTALLY AND APPLIED ICE PACKS TO AXILLARY AREA/ SMALL OF BACK, AND NAPE OF NECK; ALL OTHER VITALS ARE WNL; PT. IS IN PRONE POSITION AND TOLERATING WITH PT. ON SEDATION AND PARALYTIC GTT; PT. IS VENTILATING WELL; INTUBATED WITH #8 ETT AND 24CM AT THE LIP; SEE INTERVENTION FOR ASSESSMENT; SEE IV SPREADSHEET FOR GTTS; WILL CONT. TO MONITOR.
[2019-12-14] MEDS: ATORVASTATIN 20 MG TAB PO SCH (22:00)
[2019-12-14] MEDS: traZODone HCL 50 MG TAB PO SCH (22:00)
--- NOTE | 2019-12-14 22:00 | NUR ---
PT. HR IN THE 120'S; PT. TEMP IS 100.8 RECTALLY; PLACED TYLENOL SUPPOSITORY AND RE-APPLIED ICE PACKS; WILL CONT. TO MONITOR.
[2019-12-14] MEDS ORDERED: ACETAMINOPHEN 650 MG RECT SUPP PR ONE (22:20)
--- NOTE | 2019-12-14 23:10 | NUR ---
PAGED RT TO COME TO BEDSIDE PT. IS HIGH PEAK PRESSURING AND VOLUMES ARE IN THE 250'S; HR IN THE 130'S. RT AT BEDSIDE AND ASSISTED RT WITH HEAD POSITIONING IN ORDER TO ALLOW FOR HIM TO SUCTION PATIENT; RE-APPLIED ICE PACKS AND APPLIED COOLING BLANKET; PT. HR IS 117; PT. PULLING VOLUMES IN 500 RANGE AND SATS INCREASED FROM 92 TO 96%; PEAK PRESSURES IN THE LOW 30'S; TEMP 100.4 RECTALLY; WILL CONT. TO MONITOR.
[2019-12-15] VITALS (97 sets, daily range): BP systolic 63–148; BP diastolic 33–69
[2019-12-15] MEDS: PHENYLEPHRINE IV 250 ML IV SCH ×3 (01:15→16:13)
[2019-12-15] MEDS: ACCU-CHEK COMFORT CURVE STRIP VI SCH ×6 (04:00→21:00)
[2019-12-15] MEDS: InsuLIN REG 1unit/0.01ml Soln (100units/ml) SC SCH ×6 (04:00→21:20)
[2019-12-15] MEDS: SALINE 0.65 % NASAL SPRAY 45ML BOTTLE EACHNOSTRI SCH ×4 (06:00→22:00)
[2019-12-15 06:44] LABS: Hematocrit 39.9 % (41.0-53.0); Mean Corpuscular Hemoglobin 32.2 pg (28.0-32.0); Mean Corpuscular Hgb Conc. 32.5 g/dL (32.0-36.0); Mean Corpuscular Volume 99.2 fL (80.0-100.0); Platelet Count (auto) 44 10^3/uL (140-450); Red Blood Cells 4.02 10^6/uL (4.5-5.90); Red Cell Distribution Width 14.2 % (11.8-14.3); White Blood Cell 24.8 10^3/uL (4.4-10.8)
[2019-12-15 06:51] LABS: Calcium 7.4 mg/dL (8.5-10.1); Magnesium 2.7 mg/dL (1.6-2.6)
[2019-12-15 06:54] LABS: Basophils % (manual) 0 (0.0-2.0); Blast Cells 0; Eosinophils % (manual) 0 (0-7); Metamyelocytes % 0; Myelocytes % 0; Promyelocytes % 0; Reactive Lymphocytes 0
[2019-12-15 07:01] LABS: Albumin 1.8 g/dL (3.4-5.0); BUN/Creatinine Ratio 36.2; Bilirubin, Total 3.3 mg/dL (0.2-1.0); CRP High Sensitivity 3.5 mg/dL (< 0.3); Phosphorus 5.4 mg/dL (2.5-4.90); Total Protein 4.9 g/dL (6.4-8.2)
[2019-12-15 07:07] LABS: Potassium 5.7 mmol/L (3.5-5.1)
[2019-12-15 07:30] LABS: Band Neutrophils % (manual) 5; Lymphocytes % (manual) 6 (10.0-50.0); Monocytes % (manual) 3 (0-12)
[2019-12-15] MEDS: SOD CHL 0.45% 1,000 ML IV SCH ×2 (08:14→16:13)
[2019-12-15] MEDS: PROPOFOL 100 ML IV SCH ×2 (08:15→12:57)
[2019-12-15] MEDS: NOREPINEPHRINE 8 MG/250ML KIT 250 ML IV SCH (08:15)
[2019-12-15] MEDS: SODIUM CHLOR 0.9% PF (SALINE LOCK) 10ML VIAL/SYR IV SCH ×2 (10:00→22:00)
[2019-12-15] MEDS: PANTOPRAZOLE 40 MG/10 ML VIAL INJ IV SCH (10:00)
[2019-12-15] MEDS: ASCORBIC ACID 1,000 MG TAB PO SCH ×2 (10:00→22:00)
[2019-12-15] MEDS: ZINC SULFATE 220mg CAP or TAB PO SCH (10:00)
[2019-12-15] MEDS: CHOLECALCIFEROL (VITD3) 1,000UNIT=25mCg TAB PO SCH (10:00)
[2019-12-15] MEDS: DexAMETHasone SOD PHOS 10MG/1ML VIAL INJ IV SCH (10:00)
[2019-12-15] MEDS: SENNA 8.6 MG TAB PO SCH (10:00)
[2019-12-15] MEDS: INSULIN LANTUS (GLARGINE) 1 /0.01ml (100units/ml) SC SCH ×2 (10:00)
--- NOTE | 2019-12-15 10:30 | NUR ---
POSITION CHANGE PATIENT TURNED SUPINE NEARBY. 5 STAFF MEMBERS AT BEDSIDE TO ASSIST WITH 1 R.T AT HEAD OF BED. PATIENT TOLERATED POSITION CHANGE WELL. PT PREOXYGENATED AT 100% FI02. VSS POST TURN: 120/70 HR 69 100% FI02. RN TO STOP PARALYTIC 30MIN AFTER POSITION CHANGE OR WHEN NURSE COMPLETE WITH CARES IN ISOLATION ROOM. SKIN BREAKDOWN TO CHIN, NOSE, LEFT LATERAL ANTERIOR CHEST. OTHER BONY AREAS SUCH KNEES, HIPS, GRON, SHOULDERS AND FOREHEAD REMAIN INTACT. CXR AND ABG TO FOLLOW.
--- NOTE | 2019-12-15 10:35 | NUR ---
FIO2 TITRATED TO 90%.
--- NOTE | 2019-12-15 10:35 | NUR ---
PT TURNED FROM PRONING POSITIONED TO SUPINE WITH NO INCIDENT REPORTED. TAPED REMOVED ON ETT. PT ETT SIZE 8 AND SECURED AT 24CM AT THE LIPLINE WITH A MICKIE IN PLACE. BLISTERS NOTED ON CHIN AND UNDER NOSE. MENDEL JANE MADE AWARE.
--- NOTE | 2019-12-15 11:38 | NUR ---
COVID IN HOUSE COVID SWAB RE-SWABBED AND WALKED UP BY TECH.
--- NOTE | 2019-12-15 11:45 | NUR ---
Family updated on pt status Family of DEEHOWIEELLY updated on patient's status and condition. All questions and concerns addressed. DaughterStarr verbalized understanding.
--- NOTE | 2019-12-15 11:56 | NUR ---
ABG RESULTS REPORTED TO DR. NORTON VIA TELEPHONE. DR. NORTON ORDERED 2 AMPS OF BICARB. MENDEL JANE MADE AWARE.
[2019-12-15] MEDS ORDERED: SODIUM BICARBONATE 8.4 % INJ 50ML VIAL IV ONE (12:00)
--- NOTE | 2019-12-15 12:13 | NUR ---
Family updated on pt status Family of ELLY PRICE updated on patient's status and condition. All questions and concerns addressed. , Rosetta verbalized understanding, to come to hospital to get belongings and to sign consent for bronchoscopy today.
[2019-12-15] MEDS: MIDAZOLAM DRIP 50 mg/50mL 50 ML IV SCH (12:57)
--- NOTE | 2019-12-15 13:14 | NUR ---
Md communication order Pharmacy called to notify of mds communication order for Argatroban. Pharmacy to callback.
--- NOTE | 2019-12-15 13:27 | NUR ---
Pharmacy clarification RX stating we do no carry Argatroban. They are recommending lovenox but plt count is too. Rx recommending dosage to be verified as last lovenox dose was changed to prophylaxis from treatment. Dr. Velasco paged, awaiting callback.
--- NOTE | 2019-12-15 13:34 | NUR ---
DR. HILL CALLED BACK AWARE OF PLT COUNT TODAY AND PATIENTS HIGH RISK DUE TO COVID. PER MD OK TO START ON 40MG SQ DAILY AND HOLD IF PLT COUNT LESS THAN 30. SEE ORDER.
[2019-12-15] MEDS ORDERED: ENOXAPARIN SOD 40 MG/0.4 ML SYRINGE SC ONE (13:45)
--- NOTE | 2019-12-15 13:48 | NUR ---
BELONGINGS/ CONSENT IN PARKING LOT TO SCHOOL OPERATIONS MANAGER PATIENTS BELONGINGS SET IN BAG BY PREVIOUS NURSE. ITEMS CONTAMINATED PATIENT IS POSITIVE COVID. INSTRUCTED TO WASH ITEM SEPARATELY AND CLEAN ADDITION ITEMS WITH BLEACH IF POSSIBLE. ALSO SIGNED CONSENTS FOR BRONCHOSCOPY. QUESTIONS AND CONCERNS ADDRESSED.
--- NOTE | 2019-12-15 14:13 | NUR ---
FIO2 TITRATED TO 80% SPO2 98%.
--- NOTE | 2019-12-15 16:00 | NUR ---
PICTURES TAKEN W/C PICTURES TAKEN OF WOUNDS POST PRONING. SEE PICTURES FOR REF.
[2019-12-15] MEDS: ATRACURIUM BESYLATE 1,000 MG in D5W 5% 150 ML IV SCH (16:13)
--- NOTE | 2019-12-15 16:22 | NUR ---
Cooling Measures applied. Patient currently has temp of 99.1 , cooling measures in place.
[2019-12-15] MEDS ORDERED: FUROSEMIDE 40 MG/4 ML VIAL ONE (17:12)
[2019-12-15] MEDS ORDERED: FUROSEMIDE 40 MG/4 ML VIAL IV ONE (17:15)
[2019-12-15] MEDS ORDERED: VANCOMYCIN PER PHARMACY 0 MG IV SCH (17:15)
[2019-12-15] MEDS ORDERED: VANCOMYCIN 1GM/250ML 250 ML IV ONE (17:15)
[2019-12-15 18:05] LABS: Basophils # (auto) 0 10 ^3/uL (0-0.2); Basophils % (auto) 0.1 % (0.0-2.0); Hemoglobin 12.3 g/dL (13.5-17.5); Monocytes # (auto) 0.9 10 ^3/uL (0-1.3); Nucleated Red Blood Cells % 0.2 %; White Blood Cell 18.6 10^3/uL (4.4-10.8)
[2019-12-15 18:06] LABS: Eosinophils # (auto) 0 10 ^3/uL (0-0.8); Eosinophils % (auto) 0.2 % (0.0-7.0); Hematocrit 37.8 % (41.0-53.0); Lymphocytes # (auto) 0.8 10 ^3/uL (0.4-5.4); Lymphocytes % (auto) 4.5 % (10.0-50.0); Mean Corpuscular Hemoglobin 31.9 pg (28.0-32.0); Mean Corpuscular Hgb Conc. 32.5 g/dL (32.0-36.0); Mean Corpuscular Volume 98.2 fL (80.0-100.0); Neutrophils # (auto) 16.8 10 ^3/uL (1.6-8.6); Neutrophils % (auto) 90.2 % (37.0-80.0); Platelet Count (auto) 37 10^3/uL (140-450); Red Blood Cells 3.84 10^6/uL (4.5-5.90); Red Cell Distribution Width 14.3 % (11.8-14.3)
[2019-12-15 18:17] LABS: INR 1.24 (0.9-1.15)
[2019-12-15 18:21] LABS: BUN/Creatinine Ratio 40.4; Calcium 6.9 mg/dL (8.5-10.1); Potassium 5.5 mmol/L (3.5-5.1)
[2019-12-15] MEDS ORDERED: EPINEPHrine HCL 1 MG/1 ML AMP ONE (18:27)
[2019-12-15] MEDS ORDERED: SODIUM CHLORIDE LOCK 0 ML ONE (18:27)
[2019-12-15] MEDS ORDERED: LIDOCAINE 2%HCL (LOCAL ANESTH.) INJ 20ML MDV ONE (18:27)
[2019-12-15] MEDS ORDERED: BENZOCAINE (DENTAL) 20 % SPRAY 60ML MT ONE (18:27)
[2019-12-15] MEDS ORDERED: LIDOCAINE HCL 2% TOP JELLY 5ML TOP ONE (18:28)
--- NOTE | 2019-12-15 18:30 | NUR ---
BEDSIDE PROCEDURE DR. NORTON AND OR CREW AT BEDSIDE WITH PPE'S FOR COVID PRECAUTIONS.
--- NOTE | 2019-12-15 18:32 | NUR ---
PAGED RX CALLED REGARDING ABX. RX STATING PATIENT SHOULD BE PLACED BACK ON LEVAQUIN. AWAITING CALLBACK.
--- NOTE | 2019-12-15 18:50 | NUR ---
PAGED DR. CAN PAGEJustin PER MD COMMUNICATION ORDER. LAB RESULTS TO BE REVIEWED AND MD TO BE PLACED BACK ON CASE.
--- NOTE | 2019-12-15 19:13 | NUR ---
BEDSIDE PROCEDURE COMPLETED PATIENTS BP DECREASED TO 60/40'S. LEVOPHED INCREASED ORDERED. SEE IV SPREADSHEET/ V/S.
--- NOTE | 2019-12-15 19:43 | NUR ---
Slitter Cut Off Operator aware of reconsult and current labs. No new orders at this time. to follow up in a.m.
[2019-12-15] MEDS: TPN*HIGH CONC* PER PHARMACY IV NR ×15 (19:54→20:14)
[2019-12-15] MEDS: fentaNYL Drip 2500mCg/250mlNS 250 ML IV SCH (20:01)
[2019-12-15] MEDS: VASOPRESSIN 50 UNITS in D5W 5% 247.5 ML IV SCH (20:15)
[2019-12-15] MEDS: cefTRIAXone 1GM/50ML D5W 50 ML IV SCH (22:00)
[2019-12-15] MEDS: ATORVASTATIN 20 MG TAB PO SCH (22:00)
[2019-12-15] MEDS: traZODone HCL 50 MG TAB PO SCH (22:00)
[2019-12-15] MEDS ORDERED: ALBUTEROL SULF 2.5 MG/0.5ML(0.5%) NEB SOLN ONE (23:56)
[2019-12-16] VITALS (87 sets, daily range): BP systolic 74–140; BP diastolic 35–63
[2019-12-16] MEDS ORDERED: ALBUTEROL SULF 2.5 MG/0.5ML(0.5%) NEB SOLN NEB ONE
--- NOTE | 2019-12-16 00:05 | NUR ---
PT FIO2 INCREASED TO 90% POX NOW 95%
--- NOTE | 2019-12-16 00:06 | NUR ---
AT BEDSIDE AND PT SAT IS NOW 91% PT ASSESSED. BS ARE COARSE WITH FAINT EXP WHZ. 1 TIME ALBUTEROL TX GIVEN. POST TX SAT 94% WILL MONITOR CLOSELY.
[2019-12-16] MEDS: PHENYLEPHRINE IV 250 ML IV SCH ×3 (02:15→17:46)
[2019-12-16] MEDS: SOD CHL 0.45% 1,000 ML IV SCH (03:45)
--- NOTE | 2019-12-16 04:13 | NUR ---
PT REMAINS ON 100% FIO2. POX 97%
[2019-12-16] MEDS: SALINE 0.65 % NASAL SPRAY 45ML BOTTLE EACHNOSTRI SCH ×4 (06:00→22:22)
[2019-12-16] MEDS: ACCU-CHEK COMFORT CURVE STRIP VI SCH ×6 (06:20→20:15)
[2019-12-16] MEDS: InsuLIN REG 1unit/0.01ml Soln (100units/ml) SC SCH ×6 (06:23→20:00)
[2019-12-16 06:43] LABS: Basophils # (auto) 0 10 ^3/uL (0-0.2); Eosinophils # (auto) 0 10 ^3/uL (0-0.8); Eosinophils % (auto) 0.1 % (0.0-7.0); Hemoglobin 12.7 g/dL (13.5-17.5); Lymphocytes # (auto) 0.6 10 ^3/uL (0.4-5.4); Monocytes # (auto) 0.5 10 ^3/uL (0-1.3)
[2019-12-16 06:46] LABS: Hematocrit 38.4 % (41.0-53.0); Lymphocytes % (auto) 5.3 % (10.0-50.0); Mean Corpuscular Hemoglobin 32.6 pg (28.0-32.0); Mean Corpuscular Hgb Conc. 33.2 g/dL (32.0-36.0); Mean Corpuscular Volume 98.4 fL (80.0-100.0); Neutrophils # (auto) 9.6 10 ^3/uL (1.6-8.6); Neutrophils % (auto) 89.6 % (37.0-80.0); Nucleated Red Blood Cells % 0.4 %; Platelet Count (auto) 43 10^3/uL (140-450); Red Cell Distribution Width 14.3 % (11.8-14.3); White Blood Cell 10.7 10^3/uL (4.4-10.8)
[2019-12-16 07:08] LABS: Potassium 5.3 mmol/L (3.5-5.1)
[2019-12-16 07:12] LABS: Albumin 1.7 g/dL (3.4-5.0); BUN/Creatinine Ratio 44.4; Calcium 6.9 mg/dL (8.5-10.1); Magnesium 2.4 mg/dL (1.6-2.6)
[2019-12-16 07:15] LABS: Bilirubin, Total 3.1 mg/dL (0.2-1.0); Phosphorus 5.4 mg/dL (2.5-4.90)
[2019-12-16] MEDS: ATRACURIUM BESYLATE 1,000 MG in D5W 5% 150 ML IV SCH (07:46)
--- NOTE | 2019-12-16 07:46 | NUR ---
HIT PANEL FOLLOW UP LAB CALLED STATING SAMPLE WAS SENT ON 12/14 AND CAN TAKE UP TO 4-7 DAYS FOR RESULTS. MD TO BE NOTIFIED.
[2019-12-16] MEDS: PROPOFOL 100 ML IV SCH ×3 (08:53→21:27)
[2019-12-16] MEDS: SENNA 8.6 MG TAB PO SCH (08:54)
[2019-12-16] MEDS: ZINC SULFATE 220mg CAP or TAB PO SCH (08:54)
[2019-12-16] MEDS: CHOLECALCIFEROL (VITD3) 1,000UNIT=25mCg TAB PO SCH (08:54)
[2019-12-16] MEDS: ASCORBIC ACID 1,000 MG TAB PO SCH ×2 (08:54→22:23)
[2019-12-16] MEDS: PANTOPRAZOLE 40 MG/10 ML VIAL INJ IV SCH (08:55)
[2019-12-16] MEDS: ENOXAPARIN SOD 40 MG/0.4 ML SYRINGE SC SCH (08:55)
[2019-12-16] MEDS: DexAMETHasone SOD PHOS 10MG/1ML VIAL INJ IV SCH (08:57)
[2019-12-16] MEDS: INSULIN LANTUS (GLARGINE) 1 /0.01ml (100units/ml) SC SCH ×2 (08:58→22:24)
[2019-12-16] MEDS: SODIUM CHLOR 0.9% PF (SALINE LOCK) 10ML VIAL/SYR IV SCH ×2 (08:59→22:22)
[2019-12-16] MEDS: MIDAZOLAM DRIP 50 mg/50mL 50 ML IV SCH ×3 (09:00→21:00)
[2019-12-16] MEDS ORDERED: VANCOMYCIN 1GM/250ML 250 ML IV ONE (10:00)
[2019-12-16] MEDS ORDERED: FUROSEMIDE 20 MG/2 ML VIAL IV SCH (10:00)
[2019-12-16] MEDS ORDERED: ENOXAPARIN SOD 40 MG/0.4 ML SYRINGE SC SCH (10:00)
--- NOTE | 2019-12-16 10:06 | NUR ---
DR NORTON AT BEDSIDE. RECEIVED NEW ORDERS.
--- NOTE | 2019-12-16 11:58 | NUR ---
Family updated on pt status Family of HOWIE PRICEAHAM updated on patient's status and condition. All questions and concerns addressed. Daughter verbalized understanding.
[2019-12-16] MEDS: NOREPINEPHRINE 8 MG/250ML KIT 250 ML IV SCH (12:30)
--- NOTE | 2019-12-16 14:00 | NUR ---
INTEGRATED CAMPAIGN MANAGER PAGED FOR CONSULT MD UPDATED ON PATIENTS STATUS. SEE MD ORDERS/NOTES.
[2019-12-16] MEDS ORDERED: DOCUSATE ORAL LIQUID 100 MG/10 ML UD GT PRN (14:15)
[2019-12-16] MEDS ORDERED: INSULIN LANTUS (GLARGINE) 1 /0.01ml (100units/ml) SC ONE (14:15)
--- NOTE | 2019-12-16 14:17 | NUR ---
Nutrition Followup Note Wt: 96.6 kg Pt`s in isolation as COVID +ve. pt`s intubated partially sedated with propofol @ 26.55 ml/hr providing 700 kcals from fats. Pt is currently NPO on PN support @ 47 ml/hr providing 866 kcals, 97 gm proteins and 478 NCP. Pt with adequate PN support as it meets 81-88% of est kcals and 127-161% proteins with propofol on board Est energy needs ABW 77 [id number] kcal (23-25 kcal/kg ABW) Est protein needs 61-77g (0.8-1.0g/kg ABW) Reassessed as pt with ckd and elev RFT and intubated Labs: BUN 87 H, CREAT 1.96 H LB 1.7 L CA 6.9 L SOMMER 3.1 H BM: Pt has no BM reported per RN note Skin: BS 9 low risk, full details in director career services note. PES: Obesity aeb pt with a BMI of 30.5kg/m2 r/t caloric intake in excess of needs Comments: Will continue to monitor NPO status, PN tolerance, skin status, pertinent labs and weight trends.F/u mod 2-3 days Rec: 1) Continue PN support to meet > 75% of needs. 2) advance diet as medially feasible. 3) Refer pt to [facility] on DC 4) Continue current plan of care
[2019-12-16] MEDS: ALBUTEROL SULF 2.5 MG/0.5ML(0.5%) NEB SOLN NEB SCH ×3 (16:35→22:11)
[2019-12-16] MEDS: ACETYLCYSTEINE 20%(200MG/ML) SOL 4ML NEB SCH ×2 (16:36→22:11)
--- NOTE | 2019-12-16 17:00 | NUR ---
HOSPITALIST DR. ALEGRE UPDATED ON PATIENTS STATUS. NEW ORDER IN PLACE.
--- NOTE | 2019-12-16 17:33 | NUR ---
paged Dr. Hung updated on patients status. Md aware patients fi02 is 80% at this time with pox 96% and po2 reading in 58.9. aware. New order for abg in 1hr. R.t aware.
[2019-12-16] MEDS ORDERED: Glucerna 1.2 Cal 1Liter BOTTLE GT SCH (17:45)
[2019-12-16] MEDS: fentaNYL Drip 2500mCg/250mlNS 250 ML IV SCH (17:46)
--- NOTE | 2019-12-16 19:25 | NUR ---
Opening notes Assumed care, on vent and sedation, OGT and whitmore catheter in place, A-line and IV lines patent and intact. See spreadsheet for full assessment. Will continue care
--- NOTE | 2019-12-16 19:45 | NUR ---
Family updated on pt status Family of ELLY PRICE updated on patient's status and condition. All questions and concerns addressed. Daughter Starr requesting for Dr Hung to call Rosetta on plan of care. Daughter also requesting a note from md maxwell: patients condition and patients status for daughters work. Noc shift aware to report to a.m.
[2019-12-16] MEDS: TPN*HIGH CONC* PER PHARMACY IV NR ×14 (19:46→20:18)
[2019-12-16] MEDS: VASOPRESSIN 50 UNITS in D5W 5% 247.5 ML IV SCH (20:15)
[2019-12-16 21:41] LABS: BUN/Creatinine Ratio 47.6; Calcium 6.9 mg/dL (8.5-10.1); Potassium 5.2 mmol/L (3.5-5.1)
[2019-12-16] MEDS: traZODone HCL 50 MG TAB PO SCH (22:00)
[2019-12-16] MEDS: cefTRIAXone 1GM/50ML D5W 50 ML IV SCH (22:22)
[2019-12-16] MEDS: ATORVASTATIN 20 MG TAB PO SCH (22:23)
[2019-12-17] VITALS (101 sets, daily range): BP systolic 46–202; BP diastolic 27–108
[2019-12-17] MEDS: ACCU-CHEK COMFORT CURVE STRIP VI SCH ×6 (00:01→20:14)
[2019-12-17] MEDS: ALBUTEROL SULF 2.5 MG/0.5ML(0.5%) NEB SOLN NEB SCH ×6 (02:11→22:09)
[2019-12-17] MEDS: PHENYLEPHRINE IV 250 ML IV SCH ×4 (03:15→23:03)
[2019-12-17] MEDS: InsuLIN REG 1unit/0.01ml Soln (100units/ml) SC SCH ×6 (04:00→20:00)
--- NOTE | 2019-12-17 04:00 | NUR ---
Morning care Morning care done, linens and gown changed, desaturation 77-83% noted, delivered 100% O2, tachypnea and tachycardia 110's noted, sedation increased, see spreadsheet for titration. Suctioned large amount of bloody ET and oral secretions. Maintained on high back rest.
[2019-12-17 04:23] LABS: Basophils # (auto) 0 10 ^3/uL (0-0.2); Basophils % (auto) 0.1 % (0.0-2.0); Eosinophils # (auto) 0 10 ^3/uL (0-0.8); Eosinophils % (auto) 0.2 % (0.0-7.0); Lymphocytes # (auto) 0.3 10 ^3/uL (0.4-5.4); Monocytes # (auto) 0.2 10 ^3/uL (0-1.3)
[2019-12-17 04:25] LABS: Hematocrit 35.5 % (41.0-53.0); Hemoglobin 11.9 g/dL (13.5-17.5); Lymphocytes % (auto) 3.6 % (10.0-50.0); Mean Corpuscular Hemoglobin 32.8 pg (28.0-32.0); Mean Corpuscular Hgb Conc. 33.4 g/dL (32.0-36.0); Mean Corpuscular Volume 98.4 fL (80.0-100.0); Monocytes % (auto) 2.6 % (0.0-12.0); Neutrophils # (auto) 7.3 10 ^3/uL (1.6-8.6); Neutrophils % (auto) 93.5 % (37.0-80.0); Nucleated Red Blood Cells % 0.4 %; Platelet Count (auto) 43 10^3/uL (140-450); Red Blood Cells 3.61 10^6/uL (4.5-5.90); Red Cell Distribution Width 14.4 % (11.8-14.3); White Blood Cell 7.8 10^3/uL (4.4-10.8)
[2019-12-17 04:36] LABS: Albumin 1.7 g/dL (3.4-5.0); Magnesium 2.6 mg/dL (1.6-2.6); Potassium 4.8 mmol/L (3.5-5.1)
[2019-12-17 04:40] LABS: Bilirubin, Total 3.3 mg/dL (0.2-1.0); Total Protein 4.9 g/dL (6.4-8.2)
--- NOTE | 2019-12-17 04:45 | NUR ---
RT at bedside, FiO2 increased to 100%.
[2019-12-17 04:51] LABS: BUN/Creatinine Ratio 49.5
--- NOTE | 2019-12-17 04:55 | NUR ---
José Miguel BOILER ERECTOR at bedside, aware of pt's desaturation, ordered to increase sedation.
--- NOTE | 2019-12-17 05:52 | NUR ---
Received pt from welder 2nd shift RT. Pt with increased HR 124, increased RR 36 with abnormal abdominal breathing pattern, and persistent O2 desat 78-83% despite FIO2 increased to 100% and PEEP +14. At bedside, administered medneb tx inline via aerogen. Breath sounds bilateral coarse crackles, suctioned x2 for large amount thin bloody secretions. RN has increased sedation with no improvement. ABG drawn, results to follow.
[2019-12-17] MEDS: SALINE 0.65 % NASAL SPRAY 45ML BOTTLE EACHNOSTRI SCH ×4 (06:00→22:52)
--- NOTE | 2019-12-17 06:20 | NUR ---
Critical ABG results reported to ZULEIKA Valdez. RN paged Dr. Hung, awaiting call back.
--- NOTE | 2019-12-17 06:27 | NUR ---
José Miguel TO called, v.o given to start paralytic.
--- NOTE | 2019-12-17 06:32 | NUR ---
Paged Dr. Hung re: sustained desaturation 78-79%, FiO2 100%, RR high 20's, but no answer obtained. CARDIAC REHABILITATION PROGRAM DIRECTOR José Miguel aware. Will page Dr. Mckay.
--- NOTE | 2019-12-17 06:45 | NUR ---
Page Dr. Mckay and left a vm re: pt's current status and unstable VS. Awaiting call back
--- NOTE | 2019-12-17 06:54 | NUR ---
Maxed out on levophed, SBP 70's to 80's
--- NOTE | 2019-12-17 07:08 | NUR ---
Dr. Mckay called us back, updated on pt's status, no new orders given. Per Dr. Mckay, call the dtr and update on pt's status and ask her if she wants to make the pt DNR.
--- NOTE | 2019-12-17 07:10 | NUR ---
Called pt's dtr, Starr, updated on pt's status, per starr, she can't decide on whether pt will be DNR or still full code, she said to call her mom and look for a sales department clerk because her mom doesn't speak Arabic. I told her , i will inform the day shift nurse regarding her request.
[2019-12-17] MEDS: ACETYLCYSTEINE 20%(200MG/ML) SOL 4ML NEB SCH ×3 (07:38→22:10)
--- NOTE | 2019-12-17 07:40 | NUR ---
PHENYLEPHRINE GTT STARTED FOR LOW BP
--- NOTE | 2019-12-17 08:00 | NUR ---
SPOKE WITH DR NORTON AWARE PATIENT OXYGEN LEVEL VIA SPO2 AND ABG RESULTS/CXR RESULTS/VS INCLUDING LOW BP. STATED HE WILL COME TO BEDSIDE
[2019-12-17] MEDS ORDERED: VASOPRESSIN 20 UNIT/ML ONE ×3 (08:29→10:55)
[2019-12-17] MEDS: PROPOFOL 100 ML IV SCH ×2 (08:44→23:06)
[2019-12-17] MEDS: ATRACURIUM BESYLATE 1,000 MG in D5W 5% 150 ML IV SCH (09:00)
[2019-12-17] MEDS: ASCORBIC ACID 1,000 MG TAB PO SCH ×2 (09:59→22:07)
[2019-12-17] MEDS: DexAMETHasone SOD PHOS 10MG/1ML VIAL INJ IV SCH (09:59)
[2019-12-17] MEDS: ZINC SULFATE 220mg CAP or TAB PO SCH (09:59)
[2019-12-17] MEDS: SODIUM CHLOR 0.9% PF (SALINE LOCK) 10ML VIAL/SYR IV SCH ×2 (09:59→22:06)
[2019-12-17] MEDS: PANTOPRAZOLE 40 MG/10 ML VIAL INJ IV SCH (09:59)
[2019-12-17] MEDS: CHOLECALCIFEROL (VITD3) 1,000UNIT=25mCg TAB PO SCH (09:59)
[2019-12-17] MEDS: SENNA 8.6 MG TAB PO SCH (09:59)
[2019-12-17] MEDS: INSULIN LANTUS (GLARGINE) 1 /0.01ml (100units/ml) SC SCH ×2 (10:00→22:08)
[2019-12-17] MEDS: ENOXAPARIN SOD 40 MG/0.4 ML SYRINGE SC SCH (10:00)
--- NOTE | 2019-12-17 10:20 | NUR ---
DR NORTON HERE TO SEE PT, UPDATED ON PT STATUS. NEW VENT ORDERS RECEIVED. PT NOW ON SETTINGS: PCV, P30, RR 28, PEEP +14, I TIME 1.0, FIO2 100%. DISCUSSED POC AND VENT MANAGEMENT GOALS WITH MD. PT TOLERATING CHANGES, HR 105, RR 28, SPO2 90%, BP 121/59. ABG TO FOLLOW. WILL CONTINUE TO MONITOR.
[2019-12-17] MEDS ORDERED: EPINEPHrine HCL 250 ML IV ONE ×3 (10:47→20:24)
[2019-12-17] MEDS: EPINEPHrine HCL INJECTION 4 MG in SODIUM CHL 0.9% 250 ML IV SCH ×2 (11:00→23:04)
[2019-12-17] MEDS ORDERED: VANCOMYCIN 1GM/250ML 250 ML IV ONE (11:00)
[2019-12-17] MEDS: VASOPRESSIN 50 UNITS in D5W 5% 247.5 ML IV SCH ×2 (11:00→23:05)
--- NOTE | 2019-12-17 11:50 | NUR ---
SPOKE WITH DR NORTON, AWARE OF ABG RESULTS AND ORDERED 3 AMPS SODIUM BICARBONATE AND TO START 1/2 NS WITH 3 AMPS SODIUM BICARBONATE AT 100 ML/HR WITH ABG IN 30 MINS. RT AWARE.
[2019-12-17] MEDS ORDERED: SODIUM BICARBONATE 8.4 % INJ 50ML VIAL IV ONE ×4 (11:54→15:45)
[2019-12-17] MEDS: ALBUMIN 25% 100 ML IV SCH ×2 (12:00→22:53)
[2019-12-17] MEDS ORDERED: SODIUM BICARBONATE 50ML VIAL 150 ML in SOD CHL 0.45% 1,000 ML IV SCH (12:00)
--- NOTE | 2019-12-17 13:00 | NUR ---
SPOKE WITH DR ERROL CRANDALL AWARE LATEST ABG RESULTS AND ORDERED 3 AMPS SODIUM BICARBONATE WITH ABG Q2H X 3.
[2019-12-17] MEDS: HYDROCORTISONE SOD SUCC 100 MG/2ML INJ VIAL IV SCH ×2 (14:00→22:06)
[2019-12-17] MEDS: MIDAZOLAM DRIP 50 mg/50mL 50 ML IV SCH ×2 (14:06→21:00)
[2019-12-17] MEDS: fentaNYL Drip 2500mCg/250mlNS 250 ML IV SCH (14:06)
--- NOTE | 2019-12-17 14:50 | NUR ---
ADVANCED ETT 3CM AFTER REVIEWING CXR. ETT SECURED AT 27CM LIP WITH HOLISTER. ABG DRAWN ORDERED, RESULTS TO FOLLOW.
[2019-12-17] MEDS: NOREPINEPHRINE 8 MG/250ML KIT 250 ML IV SCH ×2 (15:30→23:05)
--- NOTE | 2019-12-17 15:46 | NUR ---
SPOKE WITH DR NORTON REGARDING LATEST ABG RESULTS, ORDERED 3 AMPS SODIUM BICARBONATE
--- NOTE | 2019-12-17 17:43 | NUR ---
SPOKE WITH DR ERROL CRANDALL AWARE OF LATEST ABG RESULTS, DR MCFADDEN UOP. DR STATED TO STOP ATRACURIUM GTT AND TO STOP HCO3 GTT. BOTH STOPPED AT THIS TIME. AWARE SP02 LEVEL AND CXR RESULTS. GAVE NEW ORDER FOR LASIX [address] MCFADDEN FAMILY CAME TO BEDSIDE EARLIER AND "WANTS EVERYTHING DONE".
[2019-12-17] MEDS ORDERED: FUROSEMIDE 40 MG/4 ML VIAL IV ONE (17:45)
--- NOTE | 2019-12-17 17:55 | NUR ---
UPDATED FAMILY ON STATUS AND VS INCLUDING OXYGEN LEVEL. ALL QUESTIONS ADDRESSED. PER YRN AND DTR LOI REQUESTING TO "NOT SHOCK" PATIENT IF PATIENT HEART WERE TO STOP BUT "CPR OK". SECOND RN GLORY VERIFIED. CALLED DR CLEMENT TO OBTAIN ORDER. AWAITING CALL BACK.
[2019-12-17] MEDS: TPN*HIGH CONC* PER PHARMACY IV NR ×7 (19:57)
[2019-12-17] MEDS ORDERED: TPN*HIGH CONC* PER PHARMACY IV NR ×8 (20:00)
--- NOTE | 2019-12-17 20:00 | NUR ---
PT TOO UNSTABLE TO BE TURNED
[2019-12-17] MEDS ORDERED: NOREPINEPHRINE 8 MG/250ML KIT 250 ML IV ONE (20:24)
[2019-12-17] MEDS ORDERED: PHENYLEPHRINE IV 250 ML IV ONE (20:24)
--- NOTE | 2019-12-17 21:55 | NUR ---
DR SANTILLAN AT BEDSIDE
[2019-12-17] MEDS: cefTRIAXone 1GM/50ML D5W 50 ML IV SCH (22:06)
[2019-12-17] MEDS: ATORVASTATIN 20 MG TAB PO SCH (22:07)
[2019-12-17] MEDS: traZODone HCL 50 MG TAB PO SCH (22:07)
[2019-12-18] VITALS (33 sets, daily range): BP systolic 40–152; BP diastolic 12–65
--- NOTE | 2019-12-18 01:30 | NUR ---
PT DID NOT TOLERATE SUCTIONING MODERATE THICK BLOODY SECRETIONS FROM ETT TUBE. DURING SUCTIONING PATIENT COUGHED, HIGH PRESSURE ALARMS WERE SET OFF, BLOOD PRESSURE DROPPED. PRESSORS WERE TITRATED ACCORDINGLY.
[2019-12-18] MEDS: ALBUTEROL SULF 2.5 MG/0.5ML(0.5%) NEB SOLN NEB SCH ×2 (01:57→06:33)
[2019-12-18] MEDS: MIDAZOLAM DRIP 50 mg/50mL 50 ML IV SCH (02:00)
[2019-12-18] MEDS: PHENYLEPHRINE IV 250 ML IV SCH ×2 (02:20→04:02)
[2019-12-18] MEDS: ACCU-CHEK COMFORT CURVE STRIP VI SCH ×2 (04:00)
[2019-12-18] MEDS: ALBUMIN 25% 100 ML IV SCH (04:00)
[2019-12-18] MEDS: InsuLIN REG 1unit/0.01ml Soln (100units/ml) SC SCH ×2 (04:00)
[2019-12-18] MEDS: NOREPINEPHRINE 8 MG/250ML KIT 250 ML IV SCH (04:03)
[2019-12-18] MEDS ORDERED: EPINEPHrine HCL 250 ML IV ONE (04:54)
[2019-12-18] MEDS: EPINEPHrine HCL INJECTION 4 MG in SODIUM CHL 0.9% 250 ML IV SCH (05:19)
--- NOTE | 2019-12-18 05:21 | NUR ---
PATIENTS STATUS ALL VASOPRESSORS ARE MAXED OUT, TITRATED TO BLOOD PRESSURE CUFF READINGS, A LINE DOES NOT SHOW ACCURATE BP. SEDATED ONLY ON VERSED PULSE OX 66% (RT AWARE) BP 87/47 WILL KEEP ON MONITORING PER DAY SHIFT REPORT.
[2019-12-18 05:38] LABS: Albumin 1.9 g/dL (3.4-5.0); Magnesium 2.6 mg/dL (1.6-2.6); Potassium 4.4 mmol/L (3.5-5.1)
[2019-12-18 05:41] LABS: BUN/Creatinine Ratio 35.9; Bilirubin, Total 3.1 mg/dL (0.2-1.0); Phosphorus 5.6 mg/dL (2.5-4.90); Total Protein 4.1 g/dL (6.4-8.2)
[2019-12-18] MEDS: HYDROCORTISONE SOD SUCC 100 MG/2ML INJ VIAL IV SCH (05:43)
[2019-12-18] MEDS: SALINE 0.65 % NASAL SPRAY 45ML BOTTLE EACHNOSTRI SCH (05:43)
[2019-12-18] MEDS: ACETYLCYSTEINE 20%(200MG/ML) SOL 4ML NEB SCH (06:33)
--- NOTE | 2019-12-18 07:00 | NUR ---
REPORT RECEIVED FROM HAND DRILLER NURSE. PATIENT INTUBATED AND ALL SEDATIONS SHUT OFF THIS AM DUE TO DECREASED BLOOD PRESSURE PER HAND DRILLER NURSE. PATIENT IN CRITICAL CONDITION, ALL VITAL SIGNS UNSTABLE CURRENTLY ON MAXIMUM RATE OF ALL ORDERED VASOPRESSORS. UNABLE TO REPOSITION PATIENT. BED IN LOW POSITION, WILL CONTINUE TO MONITOR.
--- NOTE | 2019-12-18 07:40 | NUR ---
DEONTE HAWLEY PRIOR TO ENTERING ROOM PATIENT WAS NOTED TO HAVE A DECREASED HEART RATE IN THE 60'S AND THEN WENT ASYSTOLIC ON THE MONITOR. UPON ENTERING ROOM PATIENT DID NOT HAVE A PULSE AND DEONTE HAWLEY WAS CALLED AND CPR INITIATED. SEE CODE BLUE SHEET.
--- NOTE | 2019-12-18 07:48 | NUR ---
TOD [address] ATKINS SPOKE TO FAMILY. PER YRN AND DAUGHTER LOI STOP CPR.
--- NOTE | 2019-12-18 08:05 | NUR ---
SPOKE TO DR NORTON AND INFORMED OF PATIENTS .
--- NOTE | 2019-12-18 08:10 | NUR ---
LEFT MESSAGE FOR DR Kamille ALEGRE TO INFORM OF PATIENTS . AWAITING CALL BACK.
--- NOTE | 2019-12-18 08:14 | NUR ---
FIRER LOCOMOTIVE CRANE CALLED CORONERS OFFICE TO INFORM OF PATIENTS . AWAITING CALL BACK.
--- NOTE | 2019-12-18 08:24 | NUR ---
[facility] SPOKE TO JADE BAER FROM [facility]. PER JADE PATIENT IS NOT A CANDIDATE FOR DONATION. REF #[id number]
--- NOTE | 2019-12-18 08:40 | NUR ---
CHARGE NURSE ADARSH SPOKE TO LOI PATIENTS DAUGHTER AND DISCUSSED MORTUARY. PER FAMILY THEY HAVE CHOSEN [facility] [id number] [place] [id number]. Addendum: 12/18/19 at 0920 by Mikaela Bustillo RN CHARGE NURSE APPROVED DAUGHTER AND TO COME IN AND SEE PATIENT.
--- NOTE | 2019-12-18 08:58 | NUR ---
[facility]. PATIENTS IS CLEARED BY SOFTWARE DEVELOPER INTERN. CASE# [id number]
--- NOTE | 2019-12-18 09:15 | NUR ---
FAMILY AT BEDSIDE TO SEE PATIENT PRIOR.
--- NOTE | 2019-12-18 09:24 | NUR ---
SPOKE TO DR Kamille ALEGRE TO CONFIRM HE IS AWARE OF PATIENTS .
--- NOTE | 2019-12-18 09:28 | NUR ---
SPOKE TO BILL FROM MORTUARY, FAMILY HAS NOT SET UP ALL ARRANGEMENTS FOR CARE SO PATIENT IS TO BE PLACED IN OUR [place] UNTIL MORTUARY CALLS FOR RN DISEASE MANAGEMENT. HOUSEKEEPING SUPERVISOR CR MADE AWARE.
[2019-12-18] MEDS ORDERED: VANCOMYCIN 1GM/250ML 250 ML IV ONE (10:00)
[2019-12-18] MEDS ORDERED: CALCIUM GLUC 4.65meq/50ml D5AE 50 ML IV ONE (10:00)
--- NOTE | 2019-12-18 11:07 | NUR ---
POSTMORTEM CARE PERFORMED PER POLICY. PAGED SECURITY AND HOUSE KEEPING TO TRANSPORT PATIENT TO [facility].
--- NOTE | 2019-12-18 11:36 | NUR ---
PATIENT TAKEN TO THE [facility] WITH SECURITY AND EVS.
== END 2019-12-18 15:09 | disposition expired | DRG 870 ==
LOC: ER 07:19 → TELE 07:20 → TELE-E-ADS 12-01 21:20 → ICU CENTRL 12-06 18:00 → DOU IN ICU 12-06 18:05 → ICU WEST 12-09 15:50
PROVIDERS: ADMIT Hospitalist; ATTEND Hospitalist
PROC: XW033E5 Introduction of Remdesivir Anti-infective into Peripheral Vein, Percutaneous Approach, New Technology Group 5 (ICD-10-PCS; 2019-12-03)
PROC: 30233K1 Transfusion of Nonautologous Frozen Plasma into Peripheral Vein, Percutaneous Approach (ICD-10-PCS; 2019-12-06)
PROC: 5A09457 Assistance with Respiratory Ventilation, 24-96 Consecutive Hours, Continuous Positive Airway Pressure (ICD-10-PCS; 2019-12-06)
PROC: 5A1955Z Respiratory Ventilation, Greater than 96 Consecutive Hours (ICD-10-PCS; 2019-12-09)
PROC: 0BH17EZ Insertion of Endotracheal Airway into Trachea, Via Natural or Artificial Opening (ICD-10-PCS; 2019-12-09)
PROC: 02HV33Z Insertion of Infusion Device into Superior Vena Cava, Percutaneous Approach (ICD-10-PCS; 2019-12-09)
PROC: B548ZZA Ultrasonography of Superior Vena Cava, Guidance (ICD-10-PCS; 2019-12-09)
PROC: 03HY32Z Insertion of Monitoring Device into Upper Artery, Percutaneous Approach (ICD-10-PCS; 2019-12-09)
PROC: 4A133B1 Monitoring of Arterial Pressure, Peripheral, Percutaneous Approach (ICD-10-PCS; 2019-12-09)
PROC: 4A133J1 Monitoring of Arterial Pulse, Peripheral, Percutaneous Approach (ICD-10-PCS; 2019-12-09)
PROC: 0B9D8ZX Drainage of Right Middle Lung Lobe, Via Natural or Artificial Opening Endoscopic, Diagnostic (ICD-10-PCS; principal; 2019-12-15 16:45)
PROC: 5A12012 Performance of Cardiac Output, Single, Manual (ICD-10-PCS; 2019-12-18)
DX: A41.89 Other specified sepsis (principal); U07.1 COVID-19; J96.01 Acute respiratory failure with hypoxia; J12.89 Other viral pneumonia; R65.21 Severe sepsis with septic shock; J90 Pleural effusion, not elsewhere classified; N17.9 Acute kidney failure, unspecified; E44.0 Moderate protein-calorie malnutrition; I24.9 Acute ischemic heart disease, unspecified; E87.0 Hyperosmolality and hypernatremia; G93.1 Anoxic brain damage, not elsewhere classified; F41.9 Anxiety disorder, unspecified; E11.22 Type 2 diabetes mellitus with diabetic chronic kidney disease; N18.9 Chronic kidney disease, unspecified; G47.00 Insomnia, unspecified; D69.6 Thrombocytopenia, unspecified; E83.39 Other disorders of phosphorus metabolism; J43.9 Emphysema, unspecified; L53.9 Erythematous condition, unspecified; E11.65 Type 2 diabetes mellitus with hyperglycemia; E78.5 Hyperlipidemia, unspecified; Z79.4 Long term (current) use of insulin; Z82.49 Family history of ischemic heart disease and other diseases of the circulatory system; Z83.3 Family history of diabetes mellitus
CPT/HCPCS: 31624; 36415; 36569; 36600; 71045; 71275; 80048; 80053; 80202; 81001; 82040; 82570; 82728; 82805; 82962; 83036; 83605; 83615; 83735; 83880; 84100; 84156; 84300; 84478; 84484; 85007; 85025; 85027; 85379; 85610; 85730; 86141; 86850; 86900; 86901; 87040; 87070; 87077; 87081; 87186; 87205; 87426; 92950; 93005; 93970; 94003; 94640; 94660; 96372; 96374; 99291; C9113; G0378; J0171; J0330; J0610; J0696; J1100; J1815; J1885; J1956; J2250; J2704; J3490; J7060; J7131; P9047